=== PATIENT | male | born 1935 | race African-American/Black ===

== ENCOUNTER → 2016-06-20 | Outpatient (CLI) | payer MEDICARE, OTHER ==
[~2016-06-20] MED LIST: ALPR0.25 PO; ASPI-231 PO; ATOR10TA52 PO; CLON0.1T PO; COEN100C2 PO; HYDR25TA4 PO; LOS50T PO; METO-169 PO; MIRT30TA PO; MULT-228 PO; NAPR-223 PO; PRAS5TAB3 PO; RABE20TA5 PO; TADA20TA33 PO
[2016-06-20 12:35] LABS: Urine Bilirubin Negative (Negative); Urine Blood Negative /uL (Negative); Urine Color Yellow (Yellow); Urine Glucose Normal (Normal); Urine Ketone Negative (Negative); Urine Nitrite Negative (Negative); Urine Urobilinogen Normal (Negative)
[2016-06-20 12:41] LABS: Basophils # (auto) 0 uL; Basophils % (auto) 0.5 % (0.0-2.0); Eosinophils # (auto) 0 uL; Eosinophils % (auto) 0.6 % (0.0-7.0); Hematocrit 46.5 % (41.0-53.0); Lymphocytes # (auto) 1.2 uL; Lymphocytes % (auto) 20.6 % (10.0-50.0); Mean Corpuscular Hemoglobin 28.7 pg (28.0-32.0); Mean Corpuscular Hgb Conc. 32.1 g/dL (32.0-36.0); Mean Corpuscular Volume 89.3 fL (80.0-100.0); Mean Platelet Volume 9.9 fL (7.4-10.4); Monocytes # (auto) 0.4 uL; Monocytes % (auto) 7.8 % (0.0-12.0); Neutrophils % (auto) 70.5 % (37.0-80.0); Platelet Count (auto) 203 10^3/uL (140-450); Red Cell Distribution Width 13.9 % (11.6-16.0); SUSPECT VIEW TRANSMISSION; White Blood Cell 5.6 10^3/uL (4.4-10.8)
[2016-06-20 12:55] LABS: Albumin 4.2 g/dL (3.4-5.0); BUN/Creatinine Ratio 9.6; Bilirubin, Direct 0.2 mg/dL (0-0.2); Bilirubin, Total 0.8 mg/dL (0.2-1.0); Calcium 9.6 mg/dL (8.5-10.1); Total Protein 7.8 g/dL (6.4-8.2)
== END | disposition home or self-care (01) ==
LOC: LAB 07:45
PROVIDERS: ATTEND Internal Medicine Cardiovascular Disease
DX: I10 Essential (primary) hypertension (principal); E78.00 Pure hypercholesterolemia, unspecified; K74.1 Hepatic sclerosis; E11.9 Type 2 diabetes mellitus without complications; R97.20 Elevated prostate specific antigen [PSA]; R53.81 Other malaise; E03.9 Hypothyroidism, unspecified; D64.9 Anemia, unspecified; E55.9 Vitamin D deficiency, unspecified; N39.0 Urinary tract infection, site not specified
CPT/HCPCS: 36415; 80048; 80061; 80076; 81003; 82306; 83036; 84153; 84403; 84443; 85025

== ENCOUNTER → 2016-10-14 | Outpatient (CLI) | payer MEDICARE, OTHER ==
[~2016-10-14] VITALS: Ht 172.7 cm; Wt 77.1 kg
[2016-10-14 12:22] LABS: Urine Bilirubin Negative (Negative); Urine Blood Negative /uL (Negative); Urine Color Yellow (Yellow); Urine Glucose Normal (Normal); Urine Ketone Negative (Negative); Urine Nitrite Negative (Negative); Urine Urobilinogen Normal (Negative); Urine pH 7.5 (5.0-8.0)
[2016-10-14 12:23] LABS: Basophils # (auto) 0 uL; Basophils % (auto) 0.3 % (0.0-2.0); CONDITION Y; Eosinophils # (auto) 0 uL; Eosinophils % (auto) 0.8 % (0.0-7.0); Hematocrit 42.3 % (41.0-53.0); Hemoglobin 14.2 g/dL (13.5-17.5); Lymphocytes # (auto) 1.2 uL; Lymphocytes % (auto) 19.7 % (10.0-50.0); Mean Corpuscular Hemoglobin 30.3 pg (28.0-32.0); Mean Corpuscular Hgb Conc. 33.4 g/dL (32.0-36.0); Mean Corpuscular Volume 90.7 fL (80.0-100.0); Mean Platelet Volume 9.7 fL (7.4-10.4); Monocytes # (auto) 0.6 uL; Monocytes % (auto) 9.8 % (0.0-12.0); Neutrophils # (auto) 4.1 uL; Neutrophils % (auto) 69.4 % (37.0-80.0); Platelet Count (auto) 207 10^3/uL (140-450); Red Cell Distribution Width 15.6 % (11.6-16.0); SUSPECT SEE PRINTOUT
[2016-10-14 13:01] LABS: Albumin 3.7 g/dL (3.4-5.0); BUN/Creatinine Ratio 12.7; Bilirubin, Direct 0.1 mg/dL (0-0.2); Bilirubin, Total 0.6 mg/dL (0.2-1.0); Calcium 8.8 mg/dL (8.5-10.1); Potassium 3.8 mmol/L (3.5-5.1)
[2016-10-14 14:41] LABS: Giant Platelets Few; Platelet Clumps FEW; Platelet Estimate Adequate
== END | disposition home or self-care (01) ==
LOC: Rad HDHVI 08:45
PROVIDERS: ATTEND Internal Medicine Cardiovascular Disease
DX: I10 Essential (primary) hypertension (principal); I25.10 Atherosclerotic heart disease of native coronary artery without angina pectoris; E11.9 Type 2 diabetes mellitus without complications; E03.9 Hypothyroidism, unspecified; E78.00 Pure hypercholesterolemia, unspecified; K74.1 Hepatic sclerosis; N39.0 Urinary tract infection, site not specified; D64.9 Anemia, unspecified; E55.9 Vitamin D deficiency, unspecified; R07.89 Other chest pain; R53.81 Other malaise; R97.20 Elevated prostate specific antigen [PSA]; Z95.5 Presence of coronary angioplasty implant and graft
CPT/HCPCS: 36415; 78452; 80048; 80061; 80076; 81003; 82306; 83036; 84153; 84403; 84443; 85025; 93017; 93306; 96374; A9500

== ENCOUNTER → 2017-03-27 | Outpatient (CLI) | payer MEDICARE, OTHER | END | disposition home or self-care (01) | LOC: RADONC 11:31 | PROVIDERS: ATTEND Internal Medicine Cardiovascular Disease | DX: I70.0 Atherosclerosis of aorta (principal); R05 Cough | CPT/HCPCS: 71020 ==

== ENCOUNTER 2017-04-21 20:35 | Emergency (ER) | payer MEDICARE, OTHER ==
[~2017-04-21] VITALS: Ht 172.7 cm; Wt 79.4 kg
[2017-04-21 21:17] VITALS: BP 174/80
[2017-04-21 21:53] LABS: Basophils # (auto) 0 uL; Basophils % (auto) 0.4 % (0.0-2.0); Eosinophils # (auto) 0.1 uL; Eosinophils % (auto) 1.3 % (0.0-7.0); Hematocrit 40.5 % (41.0-53.0); Hemoglobin 13.5 g/dL (13.5-17.5); Lymphocytes # (auto) 1.5 uL; Lymphocytes % (auto) 22.7 % (10.0-50.0); Mean Corpuscular Hemoglobin 29.8 pg (28.0-32.0); Mean Corpuscular Hgb Conc. 33.4 g/dL (32.0-36.0); Mean Corpuscular Volume 89.2 fL (80.0-100.0); Monocytes # (auto) 0.8 uL; Monocytes % (auto) 11.7 % (0.0-12.0); Neutrophils # (auto) 4.2 uL; Neutrophils % (auto) 63.9 % (37.0-80.0); Nucleated Red Blood Cells % 0.1 %; Platelet Count (auto) 170 10^3/uL (140-450); Red Blood Cells 4.55 10^6/uL (4.5-5.90); Red Cell Distribution Width 14.3 % (11.8-14.3); White Blood Cell 6.5 10^3/uL (4.4-10.8)
[2017-04-21 22:06] LABS: Albumin 3.8 g/dL (3.4-5.0); BUN/Creatinine Ratio 9.9; Bilirubin, Total 0.4 mg/dL (0.2-1.0); Calcium 8.7 mg/dL (8.5-10.1); Potassium 3.5 mmol/L (3.5-5.1); Total Protein 7.3 g/dL (6.4-8.2)
[2017-04-21 22:34] LABS: INR 0.92 (0.9-1.15); Partial Thromboplastin Time 28.7 sec (22.64-33.71)
== END 2017-04-21 22:26 | disposition left against medical advice (07) ==
LOC: ER 20:35
DX: R07.9 Chest pain, unspecified (principal); I10 Essential (primary) hypertension; Z53.21 Procedure and treatment not carried out due to patient leaving prior to being seen by health care provider
CPT/HCPCS: 36415; 71045; 80053; 83880; 84443; 84484; 85025; 85610; 85730; 93005

== ENCOUNTER → 2017-04-29 | Outpatient (CLI) | payer MEDICARE, OTHER | END | disposition home or self-care (01) | LOC: Rad HDHVI 14:43 | PROVIDERS: ATTEND Internal Medicine Cardiovascular Disease | DX: I25.10 Atherosclerotic heart disease of native coronary artery without angina pectoris (principal); I34.0 Nonrheumatic mitral (valve) insufficiency; E78.5 Hyperlipidemia, unspecified | CPT/HCPCS: 93306 ==

== ENCOUNTER → 2017-04-30 | Outpatient (CLI) | payer MEDICARE, OTHER ==
[~2017-04-30] VITALS: Ht 172.7 cm; Wt 79.8 kg
== END ==
LOC: Rad HDHVI 08:27
PROVIDERS: ATTEND Internal Medicine Cardiovascular Disease
DX: I10 Essential (primary) hypertension (principal); I25.10 Atherosclerotic heart disease of native coronary artery without angina pectoris; Z95.1 Presence of aortocoronary bypass graft
CPT/HCPCS: 78452; 93017; 96374; A9500

== ENCOUNTER 2017-07-08 10:25 | Emergency (ER) | payer MEDICARE, OTHER ==
[~2017-07-08] VITALS: Ht 172.7 cm; Wt 78.5 kg
[2017-07-08 11:43] VITALS: BP 168/82
== END 2017-07-08 12:48 | disposition home or self-care (01) ==
LOC: ER 10:25
DX: S00.31XA Abrasion of nose, initial encounter (principal); I48.91 Unspecified atrial fibrillation; I25.10 Atherosclerotic heart disease of native coronary artery without angina pectoris; K21.9 Gastro-esophageal reflux disease without esophagitis; E78.5 Hyperlipidemia, unspecified; I10 Essential (primary) hypertension; I25.2 Old myocardial infarction; Z98.61 Coronary angioplasty status; Z79.899 Other long term (current) drug therapy; W18.39XA Other fall on same level, initial encounter; Y93.89 Activity, other specified; Y92.89 Other specified places as the place of occurrence of the external cause; Y99.8 Other external cause status; Z79.82 Long term (current) use of aspirin
CPT/HCPCS: 70450

== ENCOUNTER → 2017-07-29 | Outpatient (CLI) | payer MEDICARE, OTHER | END | disposition home or self-care (01) | LOC: Rad HDHVI 14:41 | PROVIDERS: ATTEND Internal Medicine Cardiovascular Disease | DX: I70.209 Unspecified atherosclerosis of native arteries of extremities, unspecified extremity (principal); R20.0 Anesthesia of skin; I10 Essential (primary) hypertension; E78.5 Hyperlipidemia, unspecified; I48.91 Unspecified atrial fibrillation; Z79.82 Long term (current) use of aspirin | CPT/HCPCS: 93880; 93926 ==

== ENCOUNTER → 2017-09-14 | Outpatient (CLI) | payer MEDICARE, OTHER ==
[~2017-09-14] VITALS: Ht 172.7 cm; Wt 79.4 kg
[2017-09-14 08:10] VITALS: BP 160/90
[2017-09-14 08:35] VITALS: BP 166/92
[2017-09-14 12:05] LABS: Basophils # (auto) 0 uL; Basophils % (auto) 0.5 % (0.0-2.0); Eosinophils # (auto) 0 uL; Eosinophils % (auto) 0.7 % (0.0-7.0); Hemoglobin 14.3 g/dL (13.5-17.5); Lymphocytes # (auto) 1.1 uL; Lymphocytes % (auto) 17.1 % (10.0-50.0); Mean Corpuscular Hemoglobin 29.6 pg (28.0-32.0); Mean Corpuscular Hgb Conc. 33.2 g/dL (32.0-36.0); Mean Corpuscular Volume 89.3 fL (80.0-100.0); Monocytes # (auto) 0.7 uL; Monocytes % (auto) 11.5 % (0.0-12.0); Neutrophils # (auto) 4.5 uL; Neutrophils % (auto) 70.2 % (37.0-80.0); Nucleated Red Blood Cells % 0.6 %; Platelet Count (auto) 210 10^3/uL (140-450); Red Blood Cells 4.82 10^6/uL (4.5-5.90); Red Cell Distribution Width 15.9 % (11.8-14.3); White Blood Cell 6.4 10^3/uL (4.4-10.8)
[2017-09-14 12:11] LABS: BUN/Creatinine Ratio 9.2; Calcium 8.9 mg/dL (8.5-10.1); Potassium 3.9 mmol/L (3.5-5.1)
[2017-09-14 12:15] LABS: INR 0.94 (0.9-1.15); Partial Thromboplastin Time 28.5 sec (23.78-33.04); Prothrombin Time 10.1 sec (9.27-12.13)
== END | disposition home or self-care (01) ==
LOC: Rad HDHVI 07:59
PROVIDERS: ATTEND Internal Medicine Cardiovascular Disease
DX: Z01.818 Encounter for other preprocedural examination (principal); I10 Essential (primary) hypertension; E78.5 Hyperlipidemia, unspecified; Z79.82 Long term (current) use of aspirin
CPT/HCPCS: 36415; 71046; 80048; 85025; 85610; 85730; 93005; G0463

== ENCOUNTER 2017-09-17 07:57 | Inpatient (IN) | payer MEDICARE, OTHER ==
[~2017-09-17] VITALS: Ht 172.7 cm; Wt 92.3 kg
[~2017-09-17 07:57] MED LIST changes: -ALPR0.25 PO; -LOS50T PO; -METO-169 PO; -TADA20TA33 PO
[2017-09-17] MEDS ORDERED: LIDOCAINE 2%HCL (LOCAL ANESTH.) INJ 20ML MDV ONE (08:50)
[2017-09-17] MEDS ORDERED: IOHEXOL 350 MG/ML 100ML IJ ONE ×2 (08:51→09:23)
[2017-09-17] MEDS ORDERED: LIDOCAINE 2% (LOCAL ANESTH.) PF 5ml SDV ONE (09:23)
[2017-09-17] MEDS ORDERED: HEPARIN IN NS 1000Units/500mL 0 ML ONE (09:23)
[2017-09-17] MEDS ORDERED: guaiFENesin-DM 100/10mg/5ml SYR PO ONE (09:45)
[2017-09-17] MEDS ORDERED: MIDAZOLAM HCL 1MG/1ML-2 ML VIAL ONE (09:58)
[2017-09-17] MEDS ORDERED: fentaNYL CITRATE 100 MCG/2 ML VL ONE (09:58)
[2017-09-17] MEDS ORDERED: ANGIOMAX 250 MG VIAL IV ONE (09:59)
[2017-09-17] MEDS ORDERED: SODIUM CHL 0.9% 50 ML ONE (10:07)
[2017-09-17] MEDS ORDERED: cloNIDine HCL 0.1 MG TAB PO SCH (11:45)
[2017-09-17] MEDS ORDERED: NITROGLYCERIN 0.4 MG SL TAB SL PRN (11:45)
[2017-09-17] MEDS ORDERED: ONDANSETRON HCL 4 MG/2 ML VIAL IV PRN (11:45)
[2017-09-17] MEDS ORDERED: MORPHINE SULF(PF) 0.5MG/ML 10ML VIAL IV PRN (11:45)
[2017-09-17] MEDS ORDERED: HYDROcodone-ACET 5/325MG TAB PO PRN (11:45)
[2017-09-17] MEDS ORDERED: ACETAMINOPHEN 500 MG TAB PO PRN (11:45)
[2017-09-17] MEDS ORDERED: NAPROXEN 500 MG TAB PO SCH (11:45)
[2017-09-17] MEDS: SODIUM CHLOR 0.9% PF (SALINE LOCK) 10ML VIAL/SYR IV SCH ×2 (14:00→22:00)
[2017-09-17 14:57] VITALS: BP 166/84
[2017-09-17 17:00] VITALS: BP_SYST 136; BP_SYST 150; BP_SYST 166; BP_DIAS 64; BP_DIAS 79; BP_DIAS 84
[2017-09-17] MEDS ORDERED: MIRTAZAPINE 30 MG TAB PO SCH (18:00)
[2017-09-17 21:00] VITALS: BP 185/110
[2017-09-17 21:15] VITALS: BP 201/108
[2017-09-17 22:00] VITALS: BP_SYST 160; BP_SYST 177; BP_SYST 178; BP_DIAS 104; BP_DIAS 105; BP_DIAS 89
[2017-09-17] MEDS ORDERED: ATORVASTATIN 20 MG TAB PO SCH (22:00)
[2017-09-17] MEDS ORDERED: cloNIDine HCL 0.1 MG TAB PO PRN (22:21)
[2017-09-17 23:21] VITALS: BP 131/71
[2017-09-18] MEDS: cloNIDine HCL 0.1 MG TAB PO PRN ×2 (02:23→06:30)
[2017-09-18 05:00] VITALS: BP 172/87
[2017-09-18] MEDS: SODIUM CHLOR 0.9% PF (SALINE LOCK) 10ML VIAL/SYR IV SCH (06:55)
[2017-09-18] MEDS ORDERED: ASPirin-EC 81 mg tab PO SCH (10:00)
[2017-09-18] MEDS ORDERED: HCTZ 25 MG TAB PO SCH (10:00)
[2017-09-18] MEDS ORDERED: MULTIPLE VITAMIN TAB PO SCH (10:00)
[2017-09-18] MEDS ORDERED: PRASUGREL HCL 10 MG TAB PO SCH (10:00)
[2017-09-18 11:48] VITALS: BP 132/86
== END 2017-09-18 12:00 | disposition home or self-care (01) | DRG 271 ==
LOC: CATH 07:57 → WEST WING 07:58
PROVIDERS: ADMIT Internal Medicine Cardiovascular Disease; ATTEND Internal Medicine Cardiovascular Disease
PROC: B41G1ZZ Fluoroscopy of Left Lower Extremity Arteries using Low Osmolar Contrast (ICD-10-PCS; principal; 2017-09-17)
PROC: 04CK3ZZ Extirpation of Matter from Right Femoral Artery, Percutaneous Approach (ICD-10-PCS; 2017-09-17)
PROC: 047L3Z1 Dilation of Left Femoral Artery using Drug-Coated Balloon, Percutaneous Approach (ICD-10-PCS; 2017-09-17)
PROC: 047N3Z1 Dilation of Left Popliteal Artery using Drug-Coated Balloon, Percutaneous Approach (ICD-10-PCS; 2017-09-17)
PROC: B41F1ZZ Fluoroscopy of Right Lower Extremity Arteries using Low Osmolar Contrast (ICD-10-PCS; 2017-09-17)
DX: I70.213 Atherosclerosis of native arteries of extremities with intermittent claudication, bilateral legs (principal); I74.3 Embolism and thrombosis of arteries of the lower extremities; I25.10 Atherosclerotic heart disease of native coronary artery without angina pectoris
CPT/HCPCS: 36415; 71046; 80048; 85025; 85610; 85730; 93005; 99152; C1769; G0463; J2250

== ENCOUNTER → 2017-11-09 | Outpatient (CLI) | payer MEDICARE, OTHER ==
[~2017-11-09] MED LIST changes: +AZIL40TA2 PO; +CHOL500021 PO
[2017-11-09 09:10] VITALS: BP 140/72
[2017-11-09 09:43] VITALS: BP 140/60
[2017-11-09 12:05] LABS: Basophils # (auto) 0 uL; Basophils % (auto) 0.2 % (0.0-2.0); Eosinophils # (auto) 0.1 uL; Eosinophils % (auto) 0.8 % (0.0-7.0); Hematocrit 41.3 % (41.0-53.0); Hemoglobin 13.5 g/dL (13.5-17.5); Lymphocytes # (auto) 1.3 uL; Lymphocytes % (auto) 18.8 % (10.0-50.0); Mean Corpuscular Hemoglobin 29.7 pg (28.0-32.0); Mean Corpuscular Hgb Conc. 32.6 g/dL (32.0-36.0); Mean Corpuscular Volume 90.9 fL (80.0-100.0); Monocytes # (auto) 0.7 uL; Neutrophils # (auto) 4.8 uL; Neutrophils % (auto) 70.2 % (37.0-80.0); Nucleated Red Blood Cells % 0.1 %; Platelet Count (auto) 205 10^3/uL (140-450); Red Blood Cells 4.54 10^6/uL (4.5-5.90); White Blood Cell 6.9 10^3/uL (4.4-10.8)
[2017-11-09 12:21] LABS: BUN/Creatinine Ratio 12.7; INR 0.94 (0.9-1.15); Partial Thromboplastin Time 28.9 sec (23.78-33.04); Potassium 3.8 mmol/L (3.5-5.1); Prothrombin Time 10.1 sec (9.27-12.13)
[2017-11-09 12:22] LABS: Calcium 8.7 mg/dL (8.5-10.1)
== END | disposition home or self-care (01) ==
LOC: CHF HDHVI 09:03
PROVIDERS: ATTEND Internal Medicine Cardiovascular Disease
DX: Z01.818 Encounter for other preprocedural examination (principal); D64.9 Anemia, unspecified; R79.1 Abnormal coagulation profile; I10 Essential (primary) hypertension; K21.9 Gastro-esophageal reflux disease without esophagitis
CPT/HCPCS: 36415; 80048; 85025; 85610; 85730; 93005; G0463

== ENCOUNTER 2017-11-12 07:02 | Day surgery (SDC) | payer MEDICARE, OTHER ==
[~2017-11-12] VITALS: Ht 68 cm; Wt 78.5 kg
[~2017-11-12 07:02] MED LIST changes: -ATOR10TA52 PO; -CLON0.1T PO; -HYDR25TA4 PO; -MIRT30TA PO; -MULT-228 PO; -NAPR-223 PO; -PRAS5TAB3 PO; -RABE20TA5 PO
[2017-11-12] MEDS ORDERED: ANGIOMAX 250 MG VIAL IV ONE (08:00)
[2017-11-12] MEDS ORDERED: MIDAZOLAM HCL 1MG/1ML-2 ML VIAL ONE (08:01)
[2017-11-12] MEDS ORDERED: IOHEXOL 350 MG/ML 100ML IJ ONE (08:01)
[2017-11-12] MEDS ORDERED: fentaNYL CITRATE 100 MCG/2 ML VL ONE (08:01)
[2017-11-12] MEDS ORDERED: SODIUM CHL 0.9% 50 ML ONE (08:01)
[2017-11-12] MEDS ORDERED: LIDOCAINE 2%HCL (LOCAL ANESTH.) INJ 10ml MDV ONE (08:09)
[2017-11-12] MEDS ORDERED: NITROGLYCERIN 0.4MG/DOSE SPRAY 4.9GM ONE (08:50)
== END 2017-11-12 12:35 | disposition home or self-care (01) ==
LOC: CATH 07:02
PROVIDERS: ATTEND Internal Medicine Cardiovascular Disease
DX: I70.212 Atherosclerosis of native arteries of extremities with intermittent claudication, left leg (principal); I10 Essential (primary) hypertension; E78.5 Hyperlipidemia, unspecified; I20.9 Angina pectoris, unspecified; F41.9 Anxiety disorder, unspecified; F41.0 Panic disorder [episodic paroxysmal anxiety]; F10.99 Alcohol use, unspecified with unspecified alcohol-induced disorder; B15.9 Hepatitis A without hepatic coma; E66.01 Morbid (severe) obesity due to excess calories; Z95.820 Peripheral vascular angioplasty status with implants and grafts; Z87.891 Personal history of nicotine dependence; Z88.8 Allergy status to other drugs, medicaments and biological substances; Z68.45 Body mass index [BMI] 70 or greater, adult; Z82.3 Family history of stroke; Z83.3 Family history of diabetes mellitus; Z82.49 Family history of ischemic heart disease and other diseases of the circulatory system; Z79.899 Other long term (current) drug therapy; Z79.82 Long term (current) use of aspirin; N40.0 Benign prostatic hyperplasia without lower urinary tract symptoms
CPT/HCPCS: 36247; 75716; C1760; C1769; C1887; C1894; J0583; J1644; J2001; J2250; J3010; J7030; Q9967; 99152; 99153; A6257

== ENCOUNTER → 2018-02-15 | Outpatient (CLI) | payer MEDICARE, OTHER ==
[~2018-02-15] VITALS: Ht 172.7 cm; Wt 79.4 kg
== END | disposition home or self-care (01) ==
LOC: Rad HDHVI 09:01
PROVIDERS: ATTEND Internal Medicine Cardiovascular Disease
DX: I20.0 Unstable angina (principal); R00.2 Palpitations
CPT/HCPCS: 78452; 93017; 96374; A9500

== ENCOUNTER → 2018-05-31 | Outpatient (CLI) | payer MEDICARE, OTHER ==
[~2018-05-31] MED LIST changes: +IOHEXOL 350 MG/ML 100ML IJ ONE; +METOPROLOL TARTRATE 1MG/1ML-5ML VIAL IV ONE; +NITROGLYCERIN 0.4 MG SL TAB SL ONE
--- NOTE | 2018-05-31 10:20 | NUR ---
PT. TO CLINIC FOR CTA CORONARIES PER DR. FUNG. PROCEDURE EXPLAINED TO PT, WITH PT. HX REVIEWED WITH PT.
[2018-05-31 10:25] VITALS: BP 188/89
--- NOTE | 2018-05-31 10:25 | NUR ---
IV insertion IV access obtained, via clean sterile technique by inserting 18 gauge catheter at after attempt(s). IV secured properly. No trauma to site. Patient tolerated procedure well. STAT CMP DRAWN AND SENT PER MD ORDER.
--- NOTE | 2018-05-31 11:12 | NUR ---
STILL PENDING STAT LABS. HR 66-68. LOPRESSOR 5 MG SIVP GIVEN PER PROTOCOL.
[2018-05-31 11:21] LABS: Albumin 3.7 g/dL (3.4-5.0); Calcium 8.7 mg/dL (8.5-10.1); Potassium 3.6 mmol/L (3.5-5.1)
[2018-05-31 11:31] LABS: BUN/Creatinine Ratio 11.1; Bilirubin, Total 0.5 mg/dL (0.2-1.0); Total Protein 7.5 g/dL (6.4-8.2)
--- NOTE | 2018-05-31 11:45 | NUR ---
STAT LAB RESULTS BACK, CREAT 1.17. PT. AMBULATED TO CT WITH RN. ADVISOR CONSULTANT SHOWS RSR AT 68 WITH NO ECTOPY.
--- NOTE | 2018-05-31 11:49 | NUR ---
MEDS: PT. REMICATED WITH LOPRESSOR 5 MG SIVP PER PROTOCOL. SR 66 WITH NO ECTOPY.
--- NOTE | 2018-05-31 11:53 | NUR ---
MEDS: PT. MEDICATED WITH 0.4 MG NITRO SL PRIOR TO START OF PROCEDURE. SR 62-63 WITH NO ECTOPY.
--- NOTE | 2018-05-31 12:05 | NUR ---
PROCEDURE COMPLETED . PT. TOLERATED WELL WITH NO C/O. AMBULATED BACK TO CLINIC PENDING DISCHARGE.
--- NOTE | 2018-05-31 12:15 | NUR ---
PT. TAKING PO FLUIDS . GIVEN COPY OF LABS WITH INSTRUCTION TO INCREASE PO FLUIDS OVER NEXT 24 HRS 146/79, 62, 16, 95% RA
[2018-05-31 12:50] VITALS: BP 137/76
--- NOTE | 2018-05-31 12:50 | NUR ---
IV removal IV DC'd with sterile technique, catheter fully intact. Pressure dressing applied to site. Patient tolerated procedure well. Discharged with aftercare instructions per MD. NOTE: PT. HAS FOLLOW UP VISIT WITH DR. FUNG.
== END | disposition home or self-care (01) ==
LOC: Rad HDHVI 10:04
PROVIDERS: ATTEND Internal Medicine Cardiovascular Disease
DX: I25.10 Atherosclerotic heart disease of native coronary artery without angina pectoris (principal); R94.4 Abnormal results of kidney function studies; I10 Essential (primary) hypertension
CPT/HCPCS: 36415; 75571; 80053; 96374; 96376; G0463; Q9967; 96375

== ENCOUNTER → 2018-11-10 | Outpatient (CLI) | payer MEDICARE, OTHER ==
[~2018-11-10] MED LIST changes: -IOHEXOL 350 MG/ML 100ML IJ ONE; -METOPROLOL TARTRATE 1MG/1ML-5ML VIAL IV ONE; -NITROGLYCERIN 0.4 MG SL TAB SL ONE
[2018-11-10 15:21] VITALS: BP_SYST 181; BP_SYST 226; BP_DIAS 105; BP_DIAS 78
== END | disposition home or self-care (01) ==
LOC: CHF HDHVI 08:02
PROVIDERS: ATTEND Internal Medicine Cardiovascular Disease
DX: I25.118 Atherosclerotic heart disease of native coronary artery with other forms of angina pectoris (principal); I11.0 Hypertensive heart disease with heart failure; I50.23 Acute on chronic systolic (congestive) heart failure; I73.9 Peripheral vascular disease, unspecified; I83.90 Asymptomatic varicose veins of unspecified lower extremity; Z95.820 Peripheral vascular angioplasty status with implants and grafts; Z98.61 Coronary angioplasty status
CPT/HCPCS: G0166

== ENCOUNTER → 2018-11-11 | Outpatient (CLI) | payer MEDICARE, OTHER ==
[2018-11-11 11:33] VITALS: BP 186/89
[2018-11-11 11:34] VITALS: BP 170/83
== END | disposition home or self-care (01) ==
LOC: CHF HDHVI 07:57
PROVIDERS: ATTEND Internal Medicine Cardiovascular Disease
DX: I25.118 Atherosclerotic heart disease of native coronary artery with other forms of angina pectoris (principal); I11.0 Hypertensive heart disease with heart failure; I50.23 Acute on chronic systolic (congestive) heart failure; I73.9 Peripheral vascular disease, unspecified; I83.90 Asymptomatic varicose veins of unspecified lower extremity; Z95.820 Peripheral vascular angioplasty status with implants and grafts; Z98.61 Coronary angioplasty status
CPT/HCPCS: G0166

== ENCOUNTER → 2018-11-15 | Outpatient (CLI) | payer MEDICARE, OTHER ==
[2018-11-15 11:15] VITALS: BP 193/89
[2018-11-15 11:16] VITALS: BP 170/69
== END | disposition home or self-care (01) ==
LOC: CHF HDHVI 07:54
PROVIDERS: ATTEND Internal Medicine Cardiovascular Disease
DX: I25.118 Atherosclerotic heart disease of native coronary artery with other forms of angina pectoris (principal); I11.0 Hypertensive heart disease with heart failure; I50.23 Acute on chronic systolic (congestive) heart failure; I73.9 Peripheral vascular disease, unspecified; I83.90 Asymptomatic varicose veins of unspecified lower extremity; Z95.820 Peripheral vascular angioplasty status with implants and grafts; Z98.61 Coronary angioplasty status
CPT/HCPCS: G0166

== ENCOUNTER → 2018-11-16 | Outpatient (CLI) | payer MEDICARE, OTHER ==
[2018-11-16 11:20] VITALS: BP_SYST 184; BP_SYST 215; BP_DIAS 85; BP_DIAS 95
== END | disposition home or self-care (01) ==
LOC: CHF HDHVI 08:00
PROVIDERS: ATTEND Internal Medicine Cardiovascular Disease
DX: I25.118 Atherosclerotic heart disease of native coronary artery with other forms of angina pectoris (principal); I11.0 Hypertensive heart disease with heart failure; I50.23 Acute on chronic systolic (congestive) heart failure; I73.9 Peripheral vascular disease, unspecified; I83.90 Asymptomatic varicose veins of unspecified lower extremity; Z95.820 Peripheral vascular angioplasty status with implants and grafts; Z98.61 Coronary angioplasty status
CPT/HCPCS: G0166

== ENCOUNTER → 2018-11-17 | Outpatient (CLI) | payer MEDICARE, OTHER ==
[2018-11-18 11:19] VITALS: BP_SYST 167; BP_SYST 170; BP_DIAS 78; BP_DIAS 82
== END | disposition home or self-care (01) ==
LOC: CHF HDHVI 07:54
PROVIDERS: ATTEND Internal Medicine Cardiovascular Disease
DX: I25.118 Atherosclerotic heart disease of native coronary artery with other forms of angina pectoris (principal); I11.0 Hypertensive heart disease with heart failure; I50.23 Acute on chronic systolic (congestive) heart failure; I83.90 Asymptomatic varicose veins of unspecified lower extremity; I73.9 Peripheral vascular disease, unspecified; Z98.61 Coronary angioplasty status; Z95.1 Presence of aortocoronary bypass graft
CPT/HCPCS: G0166

== ENCOUNTER → 2018-11-18 | Outpatient (CLI) | payer MEDICARE, OTHER ==
[2018-11-18 11:40] VITALS: BP 200/91
[2018-11-18 11:41] VITALS: BP 168/75
== END | disposition home or self-care (01) ==
LOC: CHF HDHVI 08:01
PROVIDERS: ATTEND Internal Medicine Cardiovascular Disease
DX: I25.118 Atherosclerotic heart disease of native coronary artery with other forms of angina pectoris (principal); I11.0 Hypertensive heart disease with heart failure; I50.23 Acute on chronic systolic (congestive) heart failure; I73.9 Peripheral vascular disease, unspecified; I83.90 Asymptomatic varicose veins of unspecified lower extremity; Z95.820 Peripheral vascular angioplasty status with implants and grafts; Z98.61 Coronary angioplasty status
CPT/HCPCS: G0166

== ENCOUNTER → 2018-11-19 | Outpatient (CLI) | payer MEDICARE, OTHER ==
[2018-11-19 11:12] VITALS: BP 241/101
[2018-11-19 11:13] VITALS: BP 163/83
== END | disposition home or self-care (01) ==
LOC: CHF HDHVI 08:03
PROVIDERS: ATTEND Internal Medicine Cardiovascular Disease
DX: I25.118 Atherosclerotic heart disease of native coronary artery with other forms of angina pectoris (principal); I11.0 Hypertensive heart disease with heart failure; I50.23 Acute on chronic systolic (congestive) heart failure; I73.9 Peripheral vascular disease, unspecified; I83.90 Asymptomatic varicose veins of unspecified lower extremity; Z95.820 Peripheral vascular angioplasty status with implants and grafts; Z98.61 Coronary angioplasty status
CPT/HCPCS: G0166

== ENCOUNTER → 2018-12-22 | Outpatient (CLI) | payer MEDICARE, OTHER | END | disposition home or self-care (01) | LOC: Rad HDHVI 11:27 | PROVIDERS: ATTEND Internal Medicine Cardiovascular Disease | DX: M19.022 Primary osteoarthritis, left elbow (principal); M25.822 Other specified joint disorders, left elbow | CPT/HCPCS: 73080 ==

== ENCOUNTER → 2019-01-10 | Outpatient (CLI) | payer MEDICARE, OTHER | END | disposition home or self-care (01) | LOC: Rad HDHVI 11:22 | PROVIDERS: ATTEND Internal Medicine Cardiovascular Disease | DX: M48.02 Spinal stenosis, cervical region (principal); M47.892 Other spondylosis, cervical region; R20.0 Anesthesia of skin | CPT/HCPCS: 72125 ==

== ENCOUNTER → 2019-01-24 | Outpatient (CLI) | payer MEDICARE, OTHER ==
[~2019-01-24] MED LIST changes: +ALPR0.25 PO; +AMLO5TAB15 PO; +AZIL40TA3 PO; +MIRT30TA PO; +MULT-351 PO; +NAP500T PO; +OMEG120017 PO; +PANT40TA2 PO; +PRAS5TAB3 PO; +RABE20TA5 PO; +ROSU5TAB5 PO; +TADA20TA33 PO
== END | disposition home or self-care (01) ==
LOC: Rad HDHVI 09:49
PROVIDERS: ATTEND Internal Medicine Cardiovascular Disease
DX: I08.8 Other rheumatic multiple valve diseases (principal); I11.0 Hypertensive heart disease with heart failure; I50.43 Acute on chronic combined systolic (congestive) and diastolic (congestive) heart failure; I25.10 Atherosclerotic heart disease of native coronary artery without angina pectoris; I27.20 Pulmonary hypertension, unspecified
CPT/HCPCS: 93306

== ENCOUNTER → 2019-01-27 | Outpatient (CLI) | payer MEDICARE, OTHER ==
[~2019-01-27] VITALS: Ht 172.7 cm; Wt 79.4 kg
== END | disposition home or self-care (01) ==
LOC: Rad HDHVI 12:40
PROVIDERS: ATTEND Internal Medicine Cardiovascular Disease
DX: R07.89 Other chest pain (principal); R42 Dizziness and giddiness; Z82.49 Family history of ischemic heart disease and other diseases of the circulatory system
CPT/HCPCS: 78452; 93017; 96374; A9500

== ENCOUNTER → 2019-02-07 | Outpatient (CLI) | payer MEDICARE, OTHER ==
[2019-02-07 09:45] VITALS: BP 160/90
--- NOTE | 2019-02-07 09:45 | NUR ---
PT. TO CLINIC FOR PRE OP PROCEDURES ON 02/10. PT ALSO HAS APPT. WITH DR. FUNG THIS AFTERNOON. LABS AND EKG DONE WITH PT. GIVEN COPY TO TAKE FOR PRE OP INTERVIEW.
[2019-02-07 10:11] VITALS: BP 140/68
--- NOTE | 2019-02-07 10:11 | NUR ---
Pre-Op Discharge Summary: See e-MAR for any medications given for this visit. Pre-op orders received and carried out per MD of EKG, LABS and chest xrays. Patient given a copy of EKG with instructions to go to [facility] out patient for further follow up care. ORDER FOR CXR FAXED OVER TO [facility] WITH ADDITIONAL INSTRUCTIONS GIVEN TO PT. AND ALL QUESTIONS ANSWERED.
[2019-02-07 11:56] LABS: Basophils # (auto) 0 uL; Basophils % (auto) 0.4 % (0.0-2.0); Eosinophils # (auto) 0.1 uL; Eosinophils % (auto) 1.1 % (0.0-7.0); Hematocrit 43.1 % (41.0-53.0); Hemoglobin 14.3 g/dL (13.5-17.5); Lymphocytes # (auto) 1.4 uL; Lymphocytes % (auto) 19.2 % (10.0-50.0); Mean Corpuscular Hemoglobin 29.6 pg (28.0-32.0); Mean Corpuscular Hgb Conc. 33.2 g/dL (32.0-36.0); Mean Corpuscular Volume 89.1 fL (80.0-100.0); Monocytes # (auto) 0.8 uL; Monocytes % (auto) 10.9 % (0.0-12.0); Neutrophils % (auto) 68.4 % (37.0-80.0); Platelet Count (auto) 218 10^3/uL (140-450); Red Blood Cells 4.84 10^6/uL (4.5-5.90); Red Cell Distribution Width 14.8 % (11.8-14.3); White Blood Cell 7.4 10^3/uL (4.4-10.8)
[2019-02-07 12:11] LABS: INR 0.95 (0.9-1.15)
[2019-02-07 12:12] LABS: Potassium 3.6 mmol/L (3.5-5.1)
[2019-02-07 12:21] LABS: BUN/Creatinine Ratio 11.6; Calcium 8.7 mg/dL (8.5-10.1)
== END | disposition home or self-care (01) ==
LOC: Rad HDHVI 09:39
PROVIDERS: ATTEND Internal Medicine Cardiovascular Disease
DX: I11.0 Hypertensive heart disease with heart failure (principal); I50.9 Heart failure, unspecified; I25.10 Atherosclerotic heart disease of native coronary artery without angina pectoris; E78.5 Hyperlipidemia, unspecified; R94.31 Abnormal electrocardiogram [ECG] [EKG]; Z88.8 Allergy status to other drugs, medicaments and biological substances; Z87.891 Personal history of nicotine dependence; Z98.890 Other specified postprocedural states; Z87.898 Personal history of other specified conditions; Z82.3 Family history of stroke; Z82.49 Family history of ischemic heart disease and other diseases of the circulatory system; Z83.42 Family history of familial hypercholesterolemia; Z82.79 Family history of other congenital malformations, deformations and chromosomal abnormalities; Z83.3 Family history of diabetes mellitus
CPT/HCPCS: 36415; 80048; 85025; 85610; 85730; 93005; G0463

== ENCOUNTER 2019-02-10 07:27 | Inpatient (IN) | payer MEDICARE, OTHER ==
[~2019-02-10] VITALS: Ht 172.7 cm; Wt 79.7 kg
[~2019-02-10 07:27] MED LIST changes: -ASPI-231 PO; -AZIL40TA2 PO; -CHOL500021 PO
[2019-02-10] MEDS ORDERED: LIDOCAINE 2%HCL (LOCAL ANESTH.) INJ 20ML MDV ONE ×2 (08:57→09:21)
[2019-02-10] MEDS ORDERED: IOHEXOL 350 MG/ML 100ML IJ ONE ×3 (08:57→10:00)
[2019-02-10] MEDS ORDERED: ANGIOMAX 250 MG VIAL IV ONE (09:26)
[2019-02-10] MEDS ORDERED: MIDAZOLAM HCL 1MG/1ML-2 ML VIAL ONE (09:26)
[2019-02-10] MEDS ORDERED: SODIUM CHL 0.9% 50 ML ONE (09:26)
[2019-02-10] MEDS ORDERED: fentaNYL CITRATE 100 MCG/2 ML VL ONE (09:26)
[2019-02-10] MEDS ORDERED: VERAPAMIL 2.5MG/ML INJ 2ML VIAL IV ONE (09:29)
[2019-02-10] MEDS ORDERED: TICAGRELOR 90 MG TAB ONE (10:27)
[2019-02-10] MEDS ORDERED: ASPirin 325 MG TAB ONE (10:28)
[2019-02-10] MEDS ORDERED: MORPHINE SULF INJ 2 MG/ML SYRINGE 1ML IV PRN (10:45)
[2019-02-10] MEDS ORDERED: NITROGLYCERIN 0.4 MG SL TAB SL PRN (10:45)
[2019-02-10] MEDS ORDERED: TICAGRELOR 90 MG TAB PO ONE (11:15)
[2019-02-10] MEDS ORDERED: ASPirin-EC 81 mg tab PO ONE (11:15)
[2019-02-10] MEDS ORDERED: amLODIPine BESYLATE 5 MG TAB PO ONE (11:15)
[2019-02-10] MEDS ORDERED: PANTOPRAZOLE 40 MG TAB PO ONE (11:15)
[2019-02-10] MEDS ORDERED: MULTIPLE VITAMINS W/ MINERALS TAB PO ONE (11:15)
--- NOTE | 2019-02-10 14:44 | NUR ---
Patient received from veterinary laboratory technician Report received from veterinary laboratory technician. BETTY SCANLON brought to bed following Cardiac catheterization, on monitoring coordinator and portable oxygen. Patient transferred to unit bed, connected to child monitor # 25 with reading at SR 72. patient is alert and awake with even and unlabored respirations. Patient is on room air with no S/S of distress/SOB or pain noted. Catheterization site to R groin assessed for any bleeding, redness or swelling. None noted. Pedal pulses on affected leg assessed for positive tissue perfusion. Patient instructed on need to notify staff immediately if any pain, burning or wetness to site, and any lower back pain. Bed is in lowest locked position, side rails up x2, and call light within reach. Patient educated on fall prevention measures and verbalized understanding. Patient encouraged to call PRN and as needed. Will continue to monitor q1h and PRN.
[2019-02-10 17:00] VITALS: BP 169/94
--- NOTE | 2019-02-10 17:15 | NUR ---
BLEEDING TO R GROIN NOTED MOD AMOUNT OF BLEEDING TO R GROIN NOTED. MANUAL PRESSURE APPLIED FOR 10 MINS. BLEEDING STOPPED. SITE SOFT TO TOUCH. NO HEMATOMA, REDNESS OR SWELLING NOTED AT THIS TIME. NEW DRESSING APPLIED. VSS. PATIENT EDUCATED TO REMAIN IN BED FOR THE NEXT COUPLE OF HOURS. PATIENT VERBALIZED UNDERSTANDING. WILL CONTINUE TO MONITOR Q1H AND PRN.
[2019-02-10] MEDS ORDERED: MIRTAZAPINE 30 MG TAB PO SCH ×2 (18:00→22:00)
--- NOTE | 2019-02-10 18:30 | NUR ---
R GROIN REASSESSED. R GROIN REASSESSED. NO BLEEDING NOTED AT PRESENT TIME. SITE REMAINS SOFT TO TOUCH. WILL CONTINUE TO MONITOR Q1H AND PRN.
--- NOTE | 2019-02-10 19:17 | NUR ---
Shift Closing note Patient awake and alert laying in bed. Patient is on room air with even and unlabored respirations. No S/S of distress/SOB or pain at this time. Care endorsed to ABBEY MARI RN.
--- NOTE | 2019-02-10 19:20 | NUR ---
Opening Shift Note Assumed care of patient, awake and alert. No S/S of distress/SOB or pain. Right groin soft, non tender, dressing dry and intact. Instructed on POC and to call for assist PRN, will continue to monitor for changes Q1hr and PRN. Side rails up x2. Bed locked in lowest position. Call light within reach.
--- NOTE | 2019-02-10 21:31 | NUR ---
Brilinta Verified with pharmacy if brilinta needs to be held for this patient s/p heart cath. No need to hold brilinta per pharmacy.
[2019-02-10] MEDS: TICAGRELOR 90 MG TAB PO SCH (21:40)
[2019-02-10] MEDS: ALPRAZolam 0.25 MG TAB PO SCH (21:41)
[2019-02-10 22:00] VITALS: BP 141/71
--- NOTE | 2019-02-11 00:19 | NUR ---
R GROIN REASSESSE NO BLEEDING NOTED AT PRESENT TIME. SITE REMAINS SOFT TO TOUCH. WILL CONTINUE TO MONITOR Q1H AND PRN.
[2019-02-11 05:00] VITALS: BP 147/85
--- NOTE | 2019-02-11 07:00 | NUR ---
Endorsed care to day shift RN.
--- NOTE | 2019-02-11 07:30 | NUR ---
Opening Shift Note Assumed care of patient, awake and alert. No S/S of distress/SOB or pain. Instructed on POC and to call for assist PRN, will continue to monitor for changes Q1hr and PRN.
[2019-02-11 09:00] VITALS: BP 167/75
[2019-02-11] MEDS: TICAGRELOR 90 MG TAB PO SCH (09:51)
[2019-02-11] MEDS: ALPRAZolam 0.25 MG TAB PO SCH (09:53)
[2019-02-11] MEDS ORDERED: amLODIPine BESYLATE 5 MG TAB PO SCH (10:00)
[2019-02-11] MEDS ORDERED: ASPirin-EC 81 mg tab PO SCH (10:00)
[2019-02-11] MEDS ORDERED: PANTOPRAZOLE 40 MG TAB PO SCH (10:00)
[2019-02-11] MEDS ORDERED: MULTIPLE VITAMINS W/ MINERALS TAB PO SCH (10:00)
[2019-02-11] MEDS ORDERED: AZILSARTAN MEDOXOMIL CHLORTHAL PO SCH (10:00)
--- NOTE | 2019-02-11 12:57 | NUR ---
Spoke to cortney lucas. informed of patient status. Stated ok to D/c home and to continue taking home dose of Effient.
[2019-02-11 13:19] VITALS: BP 150/81
--- NOTE | 2019-02-11 14:10 | NUR ---
Discharge instructions given as ordered. Encourage to follow up with PMD as instructed. All questions and concerns addressed. Patient verbalized understanding. IV removed with catheter intact, pressure dressing applied. Telemetry unit returned to ICU. Patient ambulated out with spouse, accompanied by staff and family member. No distress noted at time of departure.
== END 2019-02-11 14:06 | disposition home or self-care (01) | DRG 247 ==
LOC: CATH 07:27 → TELE-CENTR 14:58
PROVIDERS: ADMIT Internal Medicine Cardiovascular Disease; ATTEND Internal Medicine Cardiovascular Disease
PROC: 027135Z Dilation of Coronary Artery, Two Arteries with Two Drug-eluting Intraluminal Devices, Percutaneous Approach (ICD-10-PCS; principal; 2019-02-10)
PROC: 4A023N7 Measurement of Cardiac Sampling and Pressure, Left Heart, Percutaneous Approach (ICD-10-PCS; 2019-02-10)
PROC: B2111ZZ Fluoroscopy of Multiple Coronary Arteries using Low Osmolar Contrast (ICD-10-PCS; 2019-02-10)
PROC: B2151ZZ Fluoroscopy of Left Heart using Low Osmolar Contrast (ICD-10-PCS; 2019-02-10)
PROC: 4A033BC Measurement of Arterial Pressure, Coronary, Percutaneous Approach (ICD-10-PCS; 2019-02-10)
DX: I25.10 Atherosclerotic heart disease of native coronary artery without angina pectoris (principal); I10 Essential (primary) hypertension; E78.5 Hyperlipidemia, unspecified
CPT/HCPCS: 92928; 93005; 93458; 93571; 99152; 99153; C1874; G0378; J2250

== ENCOUNTER → 2019-02-16 | Outpatient (CLI) | payer MEDICARE, OTHER | END | disposition home or self-care (01) | LOC: Rad HDHVI 12:03 | PROVIDERS: ATTEND Internal Medicine Cardiovascular Disease | DX: I67.2 Cerebral atherosclerosis (principal); I99.8 Other disorder of circulatory system; G31.9 Degenerative disease of nervous system, unspecified | CPT/HCPCS: 70450 ==

== ENCOUNTER → 2019-07-08 | Outpatient (CLI) | payer MEDICARE, OTHER ==
[~2019-07-08] MED LIST changes: -COEN100C2 PO; +COEN1CAP8 PO; +IOHEXOL 350 MG/ML 100ML IJ ONE
[2019-07-08 09:50] VITALS: BP 185/89
--- NOTE | 2019-07-08 09:50 | NUR ---
Patient in clinic for IV start and lab draw for CTA, pt AAOx4, breathing even and unlabored, ambulatory.
--- NOTE | 2019-07-08 09:51 | NUR ---
IV insertion IV access obtained, via clean sterile technique by inserting 18 gauge catheter at RAC after 1 attempt(s). IV secured properly. No trauma to site. Patient tolerated procedure well.
--- NOTE | 2019-07-08 09:55 | NUR ---
Blood draw sent for STAT creat, waiting on results.
--- NOTE | 2019-07-08 11:00 | NUR ---
rechecked patient bp, 136/74 hr 70.
--- NOTE | 2019-07-08 11:54 | NUR ---
IV removal IV DC'd with sterile technique, catheter fully intact. Pressure dressing applied to site. Patient tolerated procedure well.
[2019-07-08 11:55] VITALS: BP 137/73
--- NOTE | 2019-07-08 11:55 | NUR ---
CHF Clinic Discharge Instructions See e-MAR for any mediations given with this visit. Patient education given on disease process. Patient verbalized understanding. Previous labs reviewed. Patient discharged in stable condition with after care instructions and follow up appointment. Note Patient educated to drink plenty of fluids following IV contrast.
== END | disposition home or self-care (01) ==
LOC: Rad HDHVI 09:31
PROVIDERS: ATTEND Internal Medicine Cardiovascular Disease
DX: I70.203 Unspecified atherosclerosis of native arteries of extremities, bilateral legs (principal); I70.0 Atherosclerosis of aorta; I70.8 Atherosclerosis of other arteries; I77.4 Celiac artery compression syndrome; N40.0 Benign prostatic hyperplasia without lower urinary tract symptoms; R94.4 Abnormal results of kidney function studies; R60.9 Edema, unspecified
CPT/HCPCS: 36415; 75635; 82565; G0463; Q9967

== ENCOUNTER → 2019-09-13 | Outpatient (CLI) | payer MEDICARE, OTHER ==
[~2019-09-13] VITALS: Ht 172.7 cm; Wt 81.6 kg
[~2019-09-13] MED LIST changes: -IOHEXOL 350 MG/ML 100ML IJ ONE
== END | disposition home or self-care (01) ==
LOC: Rad HDHVI 09:01
PROVIDERS: ATTEND Internal Medicine
DX: I25.10 Atherosclerotic heart disease of native coronary artery without angina pectoris (principal); R06.02 Shortness of breath; I10 Essential (primary) hypertension; E78.00 Pure hypercholesterolemia, unspecified; I70.0 Atherosclerosis of aorta; Z82.49 Family history of ischemic heart disease and other diseases of the circulatory system
CPT/HCPCS: 71046; 78452; 93017; 96374; A9500

== ENCOUNTER → 2019-09-14 | Outpatient (CLI) | payer MEDICARE, OTHER ==
[2019-09-14 12:15] LABS: Urine Blood Negative /uL (Negative)
[2019-09-14 12:27] LABS: Basophils # (auto) 0 10 ^3/uL (0-0.2); Basophils % (auto) 0.3 % (0.0-2.0); Eosinophils # (auto) 0.1 10 ^3/uL (0-0.8); Eosinophils % (auto) 0.9 % (0.0-7.0); Hematocrit 42.6 % (41.0-53.0); Lymphocytes # (auto) 1.6 10 ^3/uL (0.4-5.4); Lymphocytes % (auto) 25.2 % (10.0-50.0); Mean Corpuscular Hemoglobin 28.9 pg (28.0-32.0); Mean Corpuscular Hgb Conc. 32.9 g/dL (32.0-36.0); Monocytes # (auto) 0.7 10 ^3/uL (0-1.3); Monocytes % (auto) 10.9 % (0.0-12.0); Neutrophils % (auto) 62.7 % (37.0-80.0); Nucleated Red Blood Cells % 0.1 %; Platelet Count (auto) 177 10^3/uL (140-450); Red Blood Cells 4.84 10^6/uL (4.5-5.90); Red Cell Distribution Width 14.9 % (11.8-14.3); White Blood Cell 6.4 10^3/uL (4.4-10.8)
[2019-09-14 12:33] LABS: Potassium 3.6 mmol/L (3.5-5.1)
[2019-09-14 12:37] LABS: Free T4 (Free Thyroxine) 1.33 ng/dL (0.89-1.76)
[2019-09-14 12:38] LABS: Prostate Specific Antigen 3.03 ng/mL (0.0-4.0)
[2019-09-14 12:53] LABS: Albumin 3.6 g/dL (3.4-5.0); BUN/Creatinine Ratio 11.2; Bilirubin, Total 0.6 mg/dL (0.2-1.0); Total Protein 7.2 g/dL (6.4-8.2)
== END | disposition home or self-care (01) ==
LOC: LAB 07:55
PROVIDERS: ATTEND Internal Medicine
DX: E03.9 Hypothyroidism, unspecified (principal); K90.9 Intestinal malabsorption, unspecified; C61 Malignant neoplasm of prostate; E29.1 Testicular hypofunction; N39.0 Urinary tract infection, site not specified; D51.9 Vitamin B12 deficiency anemia, unspecified; Z79.899 Other long term (current) drug therapy; Z00.00 Encounter for general adult medical examination without abnormal findings
CPT/HCPCS: 36415; 80053; 80061; 81003; 82306; 82607; 83036; 84153; 84403; 84439; 84443; 85025

== ENCOUNTER 2019-12-05 23:18 | Inpatient (IN) | payer MEDICARE, OTHER ==
[~2019-12-05] VITALS: Ht 172.7 cm; Wt 81.6 kg
[2019-12-06] LABS: Basophils # (auto) 0 10 ^3/uL (0-0.2); Basophils % (auto) 0.6 % (0.0-2.0); Eosinophils # (auto) 0.1 10 ^3/uL (0-0.8); Eosinophils % (auto) 1.2 % (0.0-7.0); Hematocrit 40.1 % (41.0-53.0); Hemoglobin 13.1 g/dL (13.5-17.5); Lymphocytes # (auto) 1.7 10 ^3/uL (0.4-5.4); Mean Corpuscular Hemoglobin 28.7 pg (28.0-32.0); Mean Corpuscular Hgb Conc. 32.7 g/dL (32.0-36.0); Mean Corpuscular Volume 87.7 fL (80.0-100.0); Monocytes # (auto) 0.8 10 ^3/uL (0-1.3); Monocytes % (auto) 10.8 % (0.0-12.0); Neutrophils # (auto) 4.5 10 ^3/uL (1.6-8.6); Neutrophils % (auto) 63.4 % (37.0-80.0); Platelet Count (auto) 198 10^3/uL (140-450); Red Blood Cells 4.57 10^6/uL (4.5-5.90)
[2019-12-06 00:22] LABS: Alanine Aminotransferase 27 U/L (16-61); Albumin 3.5 g/dL (3.4-5.0); Amylase 74 U/L (25-115); Anion Gap 3 (5-15); Aspartate Aminotransferase 20 U/L (15-37); BUN/Creatinine Ratio 5.7; Blood Urea Nitrogen 7 mg/dL (7-18); Calcium 8.5 mg/dL (8.5-10.1); Carbon Dioxide 31 mmol/L (21-32); Chloride 101 mmol/L (98-107); GFR African American 73 mL/min; GFR Non-African American 60 mL/min; Glucose 137 mg/dL (74-106); Lipase 79 U/L (73-393); Potassium 3.6 mmol/L (3.5-5.1); Sodium 135 mmol/L (136-145)
[2019-12-06 00:27] LABS: Alkaline Phosphatase 77 U/L (45-117); Bilirubin, Total 0.4 mg/dL (0.2-1.0)
[2019-12-06 02:05] LABS: Partial Thromboplastin Time 29.2 sec (23.0-31.2)
[2019-12-06] MEDS ORDERED: LORazepam 2MG/ML-1ML VIAL IV ONE (02:30)
[2019-12-06 02:46] LABS: Urine Bacteria NONE SEEN /hpf (None Seen); Urine Blood Negative /uL (Negative); Urine Specific Gravity 1.006 (1.001-1.035); Urine WBC <1 /hpf (0 - 3)
[2019-12-06] MEDS ORDERED: cloNIDine HCL 0.1 MG TAB PO ONE (07:15)
[2019-12-06] MEDS ORDERED: MORPHINE SULF INJ 2 MG/ML SYRINGE 1ML IV PRN (09:00)
[2019-12-06] MEDS ORDERED: NITROGLYCERIN 0.4 MG SL TAB SL PRN (09:00)
[2019-12-06] MEDS: MULTIPLE VITAMINS W/ MINERALS TAB PO SCH (09:20)
[2019-12-06] MEDS: FISH OIL PO SCH (09:20)
[2019-12-06] MEDS: PANTOPRAZOLE 40 MG TAB PO SCH (09:20)
[2019-12-06] MEDS: amLODIPine BESYLATE 5 MG TAB PO SCH (09:20)
[2019-12-06] MEDS ORDERED: NAPROXEN 500 MG TAB PO PRN (10:00)
[2019-12-06] MEDS ORDERED: ROSUVASTATIN PO SCH (10:00)
[2019-12-06] MEDS ORDERED: PRASUGREL HCL 10 MG TAB PO SCH (10:00)
[2019-12-06] MEDS ORDERED: RABEPRAZOLE SODIUM PO SCH (10:00)
[2019-12-06] MEDS ORDERED: ALPRAZolam 0.25 MG TAB PO PRN (10:00)
[2019-12-06] MEDS: AZILSARTAN MEDOXOMIL CHLORTHAL PO SCH (10:00)
--- NOTE | 2019-12-06 14:10 | NUR ---
RECEIVED PATIENT TO THE FLOOR ALERT AND ORIENTED X4 BED LOCKED IN LOWEST POSITION WITH TWO SIDE RAILS UP AND CALL LIGHT IN REACH.
--- NOTE | 2019-12-06 15:37 | NUR ---
PAGED DR FUNG REGARDING PATIENTS BP 176/100 WILL AWAIT CALL BACK FOR ORDERS
--- NOTE | 2019-12-06 15:48 | NUR ---
RECEIVED CALL FROM DR FUNG, NEW ORDERS RECEIVED.
[2019-12-06] MEDS: ISOSORBIDE MONONITRATE ER 60 MG TAB PO SCH (16:02)
[2019-12-06] MEDS ORDERED: MIRTAZAPINE 30 MG TAB PO SCH ×2 (18:00→21:00)
--- NOTE | 2019-12-06 18:00 | NUR ---
PATIENT REQUESTING TO HAVE REMERON AT 2100 INSTEAD OF 1800. PATIENT STATES HE TAKES IT TO GO TO BED AT NIGHT. CALLED PHARMACY AND MEDICATION IS RESCHEDULED.
[2019-12-06] MEDS: ATORVASTATIN 20 MG TAB PO SCH ×2 (21:13→21:25)
[2019-12-06 22:00] VITALS: BP 154/105
[2019-12-06] MEDS ORDERED: ISOSORBIDE MONONITRATE ER 60 MG TAB PO ONE (22:15)
[2019-12-07] MEDS: amLODIPine BESYLATE 5 MG TAB PO SCH (03:44)
[2019-12-07 05:15] VITALS: BP 153/97
[2019-12-07 05:43] VITALS: BP 197/116
[2019-12-07 06:28] LABS: Basophils # (auto) 0 10 ^3/uL (0-0.2); Basophils % (auto) 0.3 % (0.0-2.0); Eosinophils # (auto) 0 10 ^3/uL (0-0.8); Eosinophils % (auto) 0.7 % (0.0-7.0); Hematocrit 38.1 % (41.0-53.0); Hemoglobin 12.5 g/dL (13.5-17.5); Lymphocytes # (auto) 1.1 10 ^3/uL (0.4-5.4); Mean Corpuscular Hemoglobin 28.7 pg (28.0-32.0); Mean Corpuscular Hgb Conc. 32.8 g/dL (32.0-36.0); Mean Corpuscular Volume 87.5 fL (80.0-100.0); Monocytes # (auto) 0.6 10 ^3/uL (0-1.3); Monocytes % (auto) 9.4 % (0.0-12.0); Neutrophils % (auto) 73.6 % (37.0-80.0); Nucleated Red Blood Cells % 0.1 %; Platelet Count (auto) 187 10^3/uL (140-450); Red Blood Cells 4.36 10^6/uL (4.5-5.90); Red Cell Distribution Width 15.1 % (11.8-14.3); White Blood Cell 6.8 10^3/uL (4.4-10.8)
[2019-12-07 06:51] LABS: Calcium 8.2 mg/dL (8.5-10.1); Potassium 3.9 mmol/L (3.5-5.1)
[2019-12-07 06:58] LABS: Albumin 3.1 g/dL (3.4-5.0); BUN/Creatinine Ratio 8.8; Bilirubin, Total 0.5 mg/dL (0.2-1.0); Total Protein 6.2 g/dL (6.4-8.2)
--- NOTE | 2019-12-07 07:15 | NUR ---
Opening Shift Note Assumed care of patient, awake and alert. No S/S of distress/SOB or pain. Bed is low, locked with 2x side rails up. Call light is within reach. Instructed on POC and to call for assist PRN, will continue to monitor for changes Q1hr and PRN.
[2019-12-07] MEDS: AZILSARTAN MEDOXOMIL CHLORTHAL PO SCH (08:49)
[2019-12-07] MEDS: FISH OIL PO SCH (08:49)
[2019-12-07 09:00] VITALS: BP 138/84
[2019-12-07] MEDS: MULTIPLE VITAMINS W/ MINERALS TAB PO SCH (09:11)
[2019-12-07] MEDS: ISOSORBIDE MONONITRATE ER 60 MG TAB PO SCH (09:11)
[2019-12-07] MEDS: PANTOPRAZOLE 40 MG TAB PO SCH (09:11)
[2019-12-07 13:00] VITALS: BP 139/91
[2019-12-07 17:28] VITALS: BP 145/80
--- NOTE | 2019-12-07 18:50 | NUR ---
pt discharged home iv out tele box sent back
[2019-12-07] MEDS ORDERED: PRASUGREL HCL 10 MG TAB PO SCH (22:00)
== END 2019-12-07 18:50 | disposition home or self-care (01) | DRG 303 ==
LOC: EDBD 23:18 → ER 23:22 → TELE 23:23 → TELE-WESTW 12-06 14:10
PROVIDERS: ADMIT Internal Medicine Cardiovascular Disease; ATTEND Internal Medicine Cardiovascular Disease
DX: I25.10 Atherosclerotic heart disease of native coronary artery without angina pectoris (principal); I10 Essential (primary) hypertension; I48.91 Unspecified atrial fibrillation; E78.5 Hyperlipidemia, unspecified; K21.9 Gastro-esophageal reflux disease without esophagitis; I25.2 Old myocardial infarction; Z95.5 Presence of coronary angioplasty implant and graft; Z87.891 Personal history of nicotine dependence
CPT/HCPCS: 36415; 71045; 74176; 80053; 81001; 82150; 82550; 82553; 83690; 83880; 84484; 85025; 85379; 85610; 85730; 93005; G0378

== ENCOUNTER → 2020-01-23 | Outpatient (CLI) | payer MEDICARE, OTHER ==
[2020-01-23 10:20] VITALS: BP 155/76
[2020-01-23 11:00] VITALS: BP 146/76
== END | disposition home or self-care (01) ==
LOC: CHF HDHVI 10:16
PROVIDERS: ATTEND Internal Medicine Cardiovascular Disease
DX: I25.10 Atherosclerotic heart disease of native coronary artery without angina pectoris (principal); I10 Essential (primary) hypertension
CPT/HCPCS: G0463

== ENCOUNTER 2020-07-31 21:18 | Inpatient (IN) | payer MEDICARE, OTHER ==
[~2020-07-31] VITALS: Ht 172.7 cm; Wt 85.8 kg
[~2020-07-31 21:18] MED LIST changes: +AMLO-489 PO; -AMLO5TAB15 PO; +MIRT-66 PO; -MIRT30TA PO; +RABE20TA19 PO; -RABE20TA5 PO
[2020-07-31] MEDS ORDERED: MORPHINE SULFATE 4 MG/ML SYR/VIAL IV ONE (21:30)
[2020-07-31] MEDS ORDERED: ONDANSETRON HCL 4 MG/2 ML VIAL IV ONE (21:30)
[2020-07-31 22:38] LABS: Basophils # (auto) 0 10 ^3/uL (0-0.2); Basophils % (auto) 0.3 % (0.0-2.0); Eosinophils # (auto) 0.1 10 ^3/uL (0-0.8); Eosinophils % (auto) 0.9 % (0.0-7.0); Hematocrit 38.7 % (41.0-53.0); Hemoglobin 12.9 g/dL (13.5-17.5); Lymphocytes # (auto) 1.6 10 ^3/uL (0.4-5.4); Lymphocytes % (auto) 22.6 % (10.0-50.0); Mean Corpuscular Hemoglobin 28.9 pg (28.0-32.0); Mean Corpuscular Hgb Conc. 33.4 g/dL (32.0-36.0); Mean Corpuscular Volume 86.4 fL (80.0-100.0); Monocytes # (auto) 0.7 10 ^3/uL (0-1.3); Monocytes % (auto) 10.4 % (0.0-12.0); Neutrophils # (auto) 4.6 10 ^3/uL (1.6-8.6); Neutrophils % (auto) 65.8 % (37.0-80.0); Nucleated Red Blood Cells % 0.1 %; Platelet Count (auto) 153 10^3/uL (140-450); Red Blood Cells 4.49 10^6/uL (4.5-5.90); Red Cell Distribution Width 15.2 % (11.8-14.3); White Blood Cell 6.9 10^3/uL (4.4-10.8)
[2020-07-31 22:58] LABS: Albumin 3.2 g/dL (3.4-5.0); Calcium 8.3 mg/dL (8.5-10.1); Potassium 3.8 mmol/L (3.5-5.1)
[2020-07-31] MEDS ORDERED: LORazepam 0.5 MG TAB PO PRN (23:00)
[2020-07-31] MEDS ORDERED: cloNIDine 0.2 mg/24hr 7DAY PATCH TD PRN (23:00)
[2020-07-31 23:05] LABS: Bilirubin, Total 0.4 mg/dL (0.2-1.0); Total Protein 6.4 g/dL (6.4-8.2)
[2020-08-01 00:04] LABS: Urine Bacteria FEW /hpf (None Seen); Urine Blood Negative /uL (Negative); Urine Mucus FEW (None Seen); Urine Specific Gravity 1.007 (1.001-1.035); Urine WBC 1 /hpf (0 - 3)
[2020-08-01] MEDS ORDERED: MORPHINE SULF INJ 2 MG/ML SYRINGE 1ML IV PRN (00:30)
[2020-08-01] MEDS ORDERED: NITROGLYCERIN 0.4 MG SL TAB SL PRN (00:30)
[2020-08-01 01:08] LABS: Alcohol, Urine < 3.0 mg/dL (0-10); Amphetamine Screen, Urine NEGATIVE (NEGATIVE); Barbiturate Scree,Urine NEGATIVE (NEGATIVE); Benzodiazephine Screen, Urine NEGATIVE (NEGATIVE); Cannabinoid Screen, Urine NEGATIVE (NEGATIVE); Cocaine Screen, Urine NEGATIVE (NEGATIVE); Opiate Scree,Urine NEGATIVE (NEGATIVE); Phencyclidine Screen, Urine NEGATIVE (NEGATIVE)
[2020-08-01] MEDS ORDERED: cloNIDine HCL 0.1 MG TAB PO PRN (01:45)
[2020-08-01] MEDS ORDERED: AZIL40TA2 PO (04:11)
[2020-08-01] MEDS ORDERED: HYDR25TA4 PO (04:11)
[2020-08-01] MEDS ORDERED: ATOR20TA50 PO (04:11)
[2020-08-01] MEDS ORDERED: PRAS5TAB PO (04:11)
[2020-08-01] MEDS ORDERED: LORazepam 0.5 MG TAB PO PRN (04:45)
[2020-08-01 05:00] VITALS: BP 185/97
[2020-08-01] MEDS: LABETALOL HCL 200 MG TAB PO SCH ×3 (05:07→21:01)
[2020-08-01] MEDS: NIFEdipine ER 30 MG TAB PO SCH ×2 (09:57→21:02)
[2020-08-01] MEDS ORDERED: ISOSORBIDE MONONITRATE ER 60 MG TAB PO SCH (10:00)
[2020-08-01] MEDS ORDERED: LOSARTAN POTASSIUM 25 MG TAB PO SCH (10:00)
[2020-08-01 13:00] VITALS: BP 180/75
[2020-08-01] MEDS: ISOSORBIDE MONONITRATE ER 60 MG TAB PO SCH ×2 (14:37→21:00)
[2020-08-01 16:50] VITALS: BP 146/67
[2020-08-01] MEDS: DOXAZOSIN MESYL 2 MG TAB PO SCH (20:59)
[2020-08-01 22:39] VITALS: BP 143/77
[2020-08-02 05:14] VITALS: BP 124/65
[2020-08-02] MEDS: LABETALOL HCL 200 MG TAB PO SCH ×3 (05:23→22:19)
[2020-08-02 08:40] VITALS: BP 136/75
[2020-08-02] MEDS: AZILSARTAN 80 MG PO SCH (10:00)
[2020-08-02] MEDS: ISOSORBIDE MONONITRATE ER 60 MG TAB PO SCH ×2 (10:44→22:18)
[2020-08-02] MEDS: NIFEdipine ER 30 MG TAB PO SCH ×2 (10:45→22:18)
[2020-08-02] MEDS: DOXAZOSIN MESYL 2 MG TAB PO SCH ×2 (10:47→22:16)
[2020-08-02 12:41] VITALS: BP 129/68
[2020-08-02 17:00] VITALS: BP 122/63
[2020-08-02 22:00] VITALS: BP 138/74
[2020-08-03 05:00] VITALS: BP 115/51
[2020-08-03] MEDS: LABETALOL HCL 200 MG TAB PO SCH (05:39)
[2020-08-03 08:55] VITALS: BP 135/67
[2020-08-03] MEDS: AZILSARTAN 80 MG PO SCH (09:06)
[2020-08-03] MEDS: ISOSORBIDE MONONITRATE ER 60 MG TAB PO SCH (09:07)
[2020-08-03] MEDS: DOXAZOSIN MESYL 2 MG TAB PO SCH (09:08)
[2020-08-03] MEDS: NIFEdipine ER 30 MG TAB PO SCH (09:09)
[2020-08-03 10:05] VITALS: BP 107/68
[2020-08-03 12:34] VITALS: BP 107/68
[2020-08-03 12:56] VITALS: BP 135/67
== END 2020-08-03 13:30 | disposition home or self-care (01) | DRG 291 ==
LOC: EDBD 21:18 → ER 21:22 → TELE 08-01 00:19 → TELE-WESTW 08-01 02:55
PROVIDERS: ADMIT Internal Medicine Cardiovascular Disease; ATTEND Internal Medicine Cardiovascular Disease
DX: I11.0 Hypertensive heart disease with heart failure (principal); I50.31 Acute diastolic (congestive) heart failure; I24.9 Acute ischemic heart disease, unspecified; I25.110 Atherosclerotic heart disease of native coronary artery with unstable angina pectoris; I48.91 Unspecified atrial fibrillation; Z20.822 Contact with and (suspected) exposure to COVID-19; Z80.1 Family history of malignant neoplasm of trachea, bronchus and lung; Z88.8 Allergy status to other drugs, medicaments and biological substances; Z80.0 Family history of malignant neoplasm of digestive organs; Z80.3 Family history of malignant neoplasm of breast; Z80.42 Family history of malignant neoplasm of prostate; Z80.8 Family history of malignant neoplasm of other organs or systems; Z81.8 Family history of other mental and behavioral disorders; Z82.0 Family history of epilepsy and other diseases of the nervous system; Z82.3 Family history of stroke; Z82.49 Family history of ischemic heart disease and other diseases of the circulatory system; Z82.5 Family history of asthma and other chronic lower respiratory diseases; Z82.62 Family history of osteoporosis; Z83.3 Family history of diabetes mellitus; Z95.5 Presence of coronary angioplasty implant and graft
CPT/HCPCS: 36415; 71045; 80053; 80307; 81001; 83735; 83880; 84484; 85025; 85379; 87426; 96374; 96375; 99291; G0378; J2405

== ENCOUNTER → 2020-11-26 | Outpatient (CLI) | payer MEDICARE, OTHER ==
[~2020-11-26] MED LIST changes: +ATOR20TA50 PO; +AZIL40TA2 PO; +HYDR25TA4 PO; +PRAS5TAB PO
[2020-11-26 15:46] LABS: Basophils # (auto) 0 10 ^3/uL (0-0.2); Basophils % (auto) 0.9 % (0.0-2.0); Eosinophils # (auto) 0.1 10 ^3/uL (0-0.8); Eosinophils % (auto) 1.3 % (0.0-7.0); Hemoglobin 14.6 g/dL (13.5-17.5); Lymphocytes # (auto) 1.5 10 ^3/uL (0.4-5.4); Lymphocytes % (auto) 25.9 % (10.0-50.0); Mean Corpuscular Hemoglobin 29.4 pg (28.0-32.0); Mean Corpuscular Hgb Conc. 33.1 g/dL (32.0-36.0); Mean Corpuscular Volume 88.6 fL (80.0-100.0); Monocytes # (auto) 0.5 10 ^3/uL (0-1.3); Monocytes % (auto) 9.4 % (0.0-12.0); Neutrophils # (auto) 3.6 10 ^3/uL (1.6-8.6); Neutrophils % (auto) 62.5 % (37.0-80.0); Nucleated Red Blood Cells % 0.1 %; Red Blood Cells 4.96 10^6/uL (4.5-5.90); Red Cell Distribution Width 15.8 % (11.8-14.3); White Blood Cell 5.7 10^3/uL (4.4-10.8)
[2020-11-26 15:47] LABS: Urine Blood Negative /uL (Negative); Urine Specific Gravity 1.018 (1.001-1.035)
[2020-11-26 15:50] LABS: Albumin 3.5 g/dL (3.4-5.0); Potassium 4.5 mmol/L (3.5-5.1)
[2020-11-26 15:57] LABS: BUN/Creatinine Ratio 10.7; Bilirubin, Direct 0.2 mg/dL (0-0.2); Bilirubin, Total 0.4 mg/dL (0.2-1.0); Calcium 9.3 mg/dL (8.5-10.1); Total Protein 7.5 g/dL (6.4-8.2)
== END | disposition home or self-care (01) ==
LOC: LAB 11:26
PROVIDERS: ATTEND Internal Medicine Cardiovascular Disease
DX: C61 Malignant neoplasm of prostate (principal); M51.26 Other intervertebral disc displacement, lumbar region; M43.15 Spondylolisthesis, thoracolumbar region; M25.78 Osteophyte, vertebrae; M48.05 Spinal stenosis, thoracolumbar region; M48.07 Spinal stenosis, lumbosacral region; D51.3 Other dietary vitamin B12 deficiency anemia; I10 Essential (primary) hypertension; E11.9 Type 2 diabetes mellitus without complications; E55.9 Vitamin D deficiency, unspecified; D64.9 Anemia, unspecified; R00.2 Palpitations; R53.1 Weakness; R30.0 Dysuria
CPT/HCPCS: 36415; 72131; 80048; 80061; 80076; 81003; 82306; 83036; 84153; 84403; 84443; 85025

== ENCOUNTER → 2021-12-30 | Outpatient (CLI) | payer MEDICARE, OTHER ==
[~2021-12-30] MED LIST changes: -PRAS5TAB3 PO
== END | disposition home or self-care (01) ==
LOC: Rad HDHVI 12:41
PROVIDERS: ATTEND Internal Medicine Cardiovascular Disease
DX: I08.3 Combined rheumatic disorders of mitral, aortic and tricuspid valves (principal); I10 Essential (primary) hypertension; E78.5 Hyperlipidemia, unspecified
CPT/HCPCS: 93306

== ENCOUNTER → 2022-01-06 | Outpatient (CLI) | payer MEDICARE, OTHER ==
[~2022-01-06] VITALS: Ht 170.2 cm; Wt 79.4 kg
== END | disposition home or self-care (01) ==
LOC: Rad HDHVI 08:22
PROVIDERS: ATTEND Internal Medicine Cardiovascular Disease
DX: I10 Essential (primary) hypertension (principal); I25.10 Atherosclerotic heart disease of native coronary artery without angina pectoris; E78.5 Hyperlipidemia, unspecified; R42 Dizziness and giddiness; Z82.49 Family history of ischemic heart disease and other diseases of the circulatory system
CPT/HCPCS: 78452; 93017; 96374; A9500

== ENCOUNTER → 2023-01-02 | Outpatient (CLI) | payer MEDICARE, OTHER ==
[~2023-01-02] MED LIST changes: -AMLO-489 PO; +AMLO1TAB22 PO; -MIRT-66 PO; +MIRT-94 PO
== END | disposition home or self-care (01) ==
LOC: Rad HDHVI 08:22
PROVIDERS: ATTEND Internal Medicine Cardiovascular Disease
DX: I08.3 Combined rheumatic disorders of mitral, aortic and tricuspid valves (principal); I11.9 Hypertensive heart disease without heart failure; R07.89 Other chest pain
CPT/HCPCS: 93306

== ENCOUNTER → 2023-01-14 | Outpatient (CLI) | payer MEDICARE, OTHER | END | disposition home or self-care (01) | LOC: Rad HDHVI 14:49 | PROVIDERS: ATTEND Internal Medicine Cardiovascular Disease | DX: I65.23 Occlusion and stenosis of bilateral carotid arteries (principal); R07.89 Other chest pain; I10 Essential (primary) hypertension | CPT/HCPCS: 93880 ==

== ENCOUNTER 2023-02-17 13:34 | Inpatient (IN) | payer MEDICARE, OTHER ==
[~2023-02-17] VITALS: Ht 172.7 cm; Wt 84.0 kg
[2023-02-17] MEDS ORDERED: ACETAMINOPHEN 500 MG TAB PO ONE (14:30)
[2023-02-17 14:50] VITALS: PULSE 102; RESP 17; O2SAT 96
[2023-02-17 14:53] LABS: Basophils # (auto) 0 10 ^3/uL (0-0.2); Basophils % (auto) 0.3 % (0.0-2.0); Eosinophils # (auto) 0 10 ^3/uL (0-0.8); Eosinophils % (auto) 0.2 % (0.0-7.0); Hematocrit 44.4 % (41.0-53.0); Hemoglobin 14.5 g/dL (13.5-17.5); Lymphocytes # (auto) 0.4 10 ^3/uL (0.4-5.4); Lymphocytes % (auto) 3.8 % (10.0-50.0); Mean Corpuscular Hemoglobin 29.1 pg (28.0-32.0); Mean Corpuscular Hgb Conc. 32.8 g/dL (32.0-36.0); Mean Corpuscular Volume 88.8 fL (80.0-100.0); Monocytes # (auto) 1.3 10 ^3/uL (0-1.3); Monocytes % (auto) 12.4 % (0.0-12.0); Neutrophils # (auto) 8.8 10 ^3/uL (1.6-8.6); Neutrophils % (auto) 83.3 % (37.0-80.0); Red Cell Distribution Width 14.8 % (11.8-14.3); White Blood Cell 10.5 10^3/uL (4.4-10.8)
[2023-02-17 15:05] LABS: INR 1.04 (0.9-1.15); Partial Thromboplastin Time 30.2 SEC (24.5-34.5); Prothrombin Time 10.9 sec (9.3-11.8)
[2023-02-17 15:13] LABS: Alanine Aminotransferase 31 U/L (7-40); Albumin 4.5 g/dL (3.2-4.8); Alkaline Phosphatase 80 U/L (46-116); Anion Gap 4 (5-15); Aspartate Aminotransferase 25 U/L (13-40); BUN/Creatinine Ratio 10.2 (10.0-20.0); Bilirubin, Total 0.6 mg/dL (0.2-1.0); Blood Urea Nitrogen 14 mg/dL (9-23); Calcium 9.4 mg/dL (8.7-10.4); Carbon Dioxide 30 mmol/L (20-30); Chloride 103 mmol/L (98-107); Glucose 172 mg/dL (74-106); Magnesium 1.9 mg/dL (1.6-2.6); Sodium 137 mmol/L (136-145); Total Protein 7.2 g/dL (5.7-8.2)
[2023-02-17 15:27] LABS: Lactic Acid w/Reflex 2.1 mmol/L (0.4-2.0)
[2023-02-17] MEDS ORDERED: SODIUM CHLORIDE 0.9% 1,000 ML IV ONE (15:30)
[2023-02-17] MEDS ORDERED: cefTRIAXone 1GM/50ML D5W 50 ML IV ONE (15:30)
[2023-02-17] MEDS ORDERED: NITROGLYCERIN 0.4 MG SL TAB SL PRN (16:15)
[2023-02-17] MEDS ORDERED: HYDROcodone-ACET 5/325MG TAB PO PRN (16:15)
[2023-02-17] MEDS ORDERED: MORPHINE SULFATE INJ 2 MG/ml SYRG IV PRN ×2 (16:15)
[2023-02-17] MEDS ORDERED: ACETAMINOPHEN 325 MG TAB PO PRN (16:15)
[2023-02-17] MEDS ORDERED: ONDANSETRON HCL 4 MG/2 ML VIAL IV PRN (16:15)
[2023-02-17 16:33] LABS: LDL Cholesterol 89 mg/dL (< 100); Triglycerides 69 mg/dL (< 150)
[2023-02-17 16:34] LABS: HDL Cholesterol 44 mg/dL (40-59)
[2023-02-17 16:35] LABS: Cholesterol 143 mg/dL (< 200)
[2023-02-17 16:59] LABS: Urine Bacteria NONE SEEN /hpf (None Seen); Urine Blood 1+ /uL (Negative); Urine Clarity Clear (Clear); Urine Color Yellow (Yellow); Urine Protein, UAD 2+ (Negative); Urine Specific Gravity 1.019 (1.001-1.035); Urine Urobilinogen Normal (Negative); Urine WBC 1 /hpf (0 - 3); Urine pH 6.5 (5.0-8.0)
[2023-02-17] MEDS: CARVEDILOL 12.5 MG TAB PO SCH ×2 (17:00→22:34)
[2023-02-17 17:03] LABS: Rapid Influenza A Negative (Negative); Rapid Influenza B Negative (Negative)
[2023-02-17 17:04] LABS: COVID19 ANTIGEN SOFIA FIA NEGATIVE (NEGATIVE)
[2023-02-17 17:16] LABS: Amphetamine Screen, Urine Neg (NEGATIVE); Barbiturate Scree,Urine Neg (NEGATIVE); Benzodiazephine Screen, Urine Neg (NEGATIVE); Cannabinoid Screen, Urine Neg (NEGATIVE); Cocaine Screen, Urine Neg (NEGATIVE); Opiate Scree,Urine Neg (NEGATIVE); Phencyclidine Screen, Urine Neg (NEGATIVE)
[2023-02-17] MEDS: SODIUM CHLORIDE 0.9% 2,400 ML IV ONE ×2 (17:58→18:00)
[2023-02-17] MEDS: TAMSULOSIN HYDROCHLORIDE 0.4 MG CAP PO SCH (18:08)
[2023-02-17 19:30] VITALS: PULSE 76; RESP 18; O2SAT 97
[2023-02-17] MEDS: ASPirin 81 mg TAB PO SCH (22:33)
[2023-02-17 22:55] VITALS: BP 148/82; PULSE 82; RESP 18; TEMP 98.5; O2SAT 92
[2023-02-17] MEDS: ATORVASTATIN 20 MG TAB PO SCH (23:18)
[2023-02-18] VITALS (7 sets, daily range): BP systolic 132–172; BP diastolic 68–87; PULSE 75–82; RESP 16–19; TEMP 99.2–99.9; O2SAT 94–95
[2023-02-18] MEDS: EMPAGLIFLOZIN 10 MG TAB PO SCH (06:24)
[2023-02-18 06:45] LABS: Basophils # (auto) 0 10 ^3/uL (0-0.2); Basophils % (auto) 0.2 % (0.0-2.0); Eosinophils # (auto) 0 10 ^3/uL (0-0.8); Hematocrit 38.9 % (41.0-53.0); Hemoglobin 12.7 g/dL (13.5-17.5); Lymphocytes # (auto) 0.8 10 ^3/uL (0.4-5.4); Lymphocytes % (auto) 8.4 % (10.0-50.0); Mean Corpuscular Hgb Conc. 32.7 g/dL (32.0-36.0); Mean Corpuscular Volume 88.6 fL (80.0-100.0); Monocytes # (auto) 1.2 10 ^3/uL (0-1.3); Monocytes % (auto) 13.5 % (0.0-12.0); Neutrophils # (auto) 7.2 10 ^3/uL (1.6-8.6); Neutrophils % (auto) 77.9 % (37.0-80.0); Nucleated Red Blood Cells % 0.1 %; Red Cell Distribution Width 14.9 % (11.8-14.3); White Blood Cell 9.2 10^3/uL (4.4-10.8)
[2023-02-18 06:46] LABS: Chloride 108 mmol/L (98-107); Potassium 3.6 mmol/L (3.5-5.1); Sodium 140 mmol/L (136-145)
[2023-02-18 06:47] LABS: Anion Gap 5 (5-15); Carbon Dioxide 27 mmol/L (20-30)
[2023-02-18 06:48] LABS: Calcium 7.9 mg/dL (8.5-10.1)
[2023-02-18 06:53] LABS: BUN/Creatinine Ratio 10.2 (10.0-20.0); Blood Urea Nitrogen 11 mg/dL (9-23); Glucose 119 mg/dL (74-106)
[2023-02-18] MEDS ORDERED: FUROSEMIDE 40 MG TAB PO SCH (10:00)
[2023-02-18] MEDS: cefTRIAXone 1GM/50ML D5W 50 ML IV SCH (10:05)
[2023-02-18] MEDS: CARVEDILOL 12.5 MG TAB PO SCH ×2 (10:06→21:34)
[2023-02-18] MEDS: guaiFENesin-CODEINE Liq 5 ML UD PO PRN ×2 (10:06→17:45)
[2023-02-18] MEDS: FUROSEMIDE 40 MG TAB PO SCH (10:07)
[2023-02-18] MEDS ORDERED: LISINOPRIL 5 MG TAB PO SCH (13:00)
[2023-02-18] MEDS: TAMSULOSIN HYDROCHLORIDE 0.4 MG CAP PO SCH (17:45)
[2023-02-18] MEDS: ASPirin 81 mg TAB PO SCH (21:34)
[2023-02-18] MEDS: ATORVASTATIN 20 MG TAB PO SCH (21:34)
[2023-02-18] MEDS: hydrALAZINE HCL 20 MG/ML VL IV PRN (21:57)
[2023-02-19 05:00] VITALS: BP 146/70; PULSE 78; RESP 18; TEMP 98.9; O2SAT 96
[2023-02-19 05:43] LABS: Basophils # (auto) 0 10 ^3/uL (0-0.2); Basophils % (auto) 0.4 % (0.0-2.0); Eosinophils # (auto) 0.1 10 ^3/uL (0-0.8); Eosinophils % (auto) 0.7 % (0.0-7.0); Hematocrit 39.3 % (41.0-53.0); Lymphocytes # (auto) 1.1 10 ^3/uL (0.4-5.4); Lymphocytes % (auto) 13.5 % (10.0-50.0); Mean Corpuscular Hemoglobin 29.1 pg (28.0-32.0); Mean Corpuscular Hgb Conc. 32.9 g/dL (32.0-36.0); Mean Corpuscular Volume 88.2 fL (80.0-100.0); Monocytes # (auto) 1.5 10 ^3/uL (0-1.3); Monocytes % (auto) 17.6 % (0.0-12.0); Neutrophils # (auto) 5.8 10 ^3/uL (1.6-8.6); Neutrophils % (auto) 67.8 % (37.0-80.0); Nucleated Red Blood Cells % 0.1 %; Red Blood Cells 4.46 10^6/uL (4.5-5.90); Red Cell Distribution Width 14.5 % (11.8-14.3); White Blood Cell 8.5 10^3/uL (4.4-10.8)
[2023-02-19 05:44] LABS: Anion Gap 6 (5-15); Carbon Dioxide 27 mmol/L (20-30); Chloride 103 mmol/L (98-107); Potassium 3.3 mmol/L (3.5-5.1); Sodium 136 mmol/L (136-145)
[2023-02-19 05:45] LABS: Calcium 8.1 mg/dL (8.7-10.4)
[2023-02-19] MEDS: EMPAGLIFLOZIN 10 MG TAB PO SCH (05:49)
[2023-02-19 05:50] LABS: BUN/Creatinine Ratio 12.4 (10.0-20.0); Blood Urea Nitrogen 15 mg/dL (9-23); Glucose 113 mg/dL (74-106)
[2023-02-19 07:07] LABS: PSA Free 1.35 ng/mL; Prostate Specific Antigen 4.7 ng/mL (0.0-4.0)
[2023-02-19] MEDS ORDERED: MORPHINE SULFATE INJ 2 MG/ml SYRG IV PRN (07:30)
[2023-02-19] MEDS ORDERED: amLODIPine BESYLATE 5 MG TAB PO ONE (07:30)
[2023-02-19] MEDS ORDERED: POTASSIUM CHL 20 Meq TABLET PO ONE (07:30)
[2023-02-19 08:00] VITALS: BP 157/83; PULSE 69; PULSE 77; RESP 17; TEMP 98.5; O2SAT 96
[2023-02-19 09:00] VITALS: BP 157/83; PULSE 69; RESP 17; TEMP 98.5; O2SAT 96
[2023-02-19] MEDS: cefTRIAXone 1GM/50ML D5W 50 ML IV SCH (10:03)
[2023-02-19] MEDS: CARVEDILOL 12.5 MG TAB PO SCH (10:04)
[2023-02-19] MEDS: FUROSEMIDE 40 MG TAB PO SCH (10:05)
[2023-02-19] MEDS: guaiFENesin-CODEINE Liq 5 ML UD PO PRN (10:15)
[2023-02-19] MEDS: hydrALAZINE HCL 20 MG/ML VL IV PRN (10:18)
[2023-02-19] MEDS ORDERED: AMOX500T86 PO ×2 (12:00)
[2023-02-19 13:00] VITALS: BP 148/78; PULSE 74; RESP 18; TEMP 97.6; O2SAT 97
[2023-02-19 14:50] VITALS: BP 148/78; PULSE 74; RESP 18; TEMP 97.6; O2SAT 97
[2023-02-20] MEDS ORDERED: amLODIPine BESYLATE 5 MG TAB PO SCH (10:00)
== END 2023-02-19 16:10 | disposition home or self-care (01) | DRG 871 ==
LOC: EDBD 13:34 → ER 13:34 → TELE 16:17 → TELE-CENTR 22:55 → CENTRAL 02-18 10:57
PROVIDERS: ADMIT Internal Medicine; ATTEND Internal Medicine
DX: A41.81 Sepsis due to Enterococcus (principal); N17.0 Acute kidney failure with tubular necrosis; I50.22 Chronic systolic (congestive) heart failure; N39.0 Urinary tract infection, site not specified; Z20.822 Contact with and (suspected) exposure to COVID-19; B95.2 Enterococcus as the cause of diseases classified elsewhere; I11.0 Hypertensive heart disease with heart failure; J06.9 Acute upper respiratory infection, unspecified; I48.91 Unspecified atrial fibrillation; I25.10 Atherosclerotic heart disease of native coronary artery without angina pectoris; E78.5 Hyperlipidemia, unspecified; Z95.5 Presence of coronary angioplasty implant and graft; N40.1 Benign prostatic hyperplasia with lower urinary tract symptoms
CPT/HCPCS: 36415; 70450; 71045; 76775; 80048; 80053; 80061; 80307; 80320; 81001; 82607; 83605; 83735; 83880; 84154; 84300; 84443; 84484; 85025; 85610; 85730; 87040; 87086; 87426; 87804; 93005; 96365; 97110; 97116; 97163; 97530; G0378; J0696

== ENCOUNTER 2023-02-19 18:28 | Inpatient (IN) | payer MEDICARE, OTHER ==
[~2023-02-19] VITALS: Ht 170.2 cm; Wt 79.5 kg
[~2023-02-19 18:28] MED LIST changes: +AMOX500T86 PO
[2023-02-19 19:17] LABS: Basophils # (auto) 0 10 ^3/uL (0-0.2); Basophils % (auto) 0.3 % (0.0-2.0); Eosinophils # (auto) 0.1 10 ^3/uL (0-0.8); Hematocrit 41.6 % (41.0-53.0); Hemoglobin 13.5 g/dL (13.5-17.5); Lymphocytes # (auto) 1.2 10 ^3/uL (0.4-5.4); Lymphocytes % (auto) 12.1 % (10.0-50.0); Mean Corpuscular Hemoglobin 28.7 pg (28.0-32.0); Mean Corpuscular Hgb Conc. 32.4 g/dL (32.0-36.0); Mean Corpuscular Volume 88.5 fL (80.0-100.0); Monocytes # (auto) 1.4 10 ^3/uL (0-1.3); Monocytes % (auto) 13.4 % (0.0-12.0); Neutrophils # (auto) 7.4 10 ^3/uL (1.6-8.6); Neutrophils % (auto) 73.2 % (37.0-80.0); Red Cell Distribution Width 14.8 % (11.8-14.3); White Blood Cell 10.1 10^3/uL (4.4-10.8)
[2023-02-19 19:35] LABS: Alanine Aminotransferase 30 U/L (7-40); Albumin 3.9 g/dL (3.2-4.8); Alkaline Phosphatase 54 U/L (46-116); Anion Gap 9 (5-15); Aspartate Aminotransferase 48 U/L (13-40); BUN/Creatinine Ratio 14.7 (10.0-20.0); Bilirubin, Total 0.6 mg/dL (0.2-1.0); Blood Alcohol 3.8 mg/dL (<10); Blood Urea Nitrogen 22 mg/dL (9-23); Calcium 8.6 mg/dL (8.7-10.4); Carbon Dioxide 28 mmol/L (20-30); Chloride 101 mmol/L (98-107); Glucose 134 mg/dL (74-106); Magnesium 1.8 mg/dL (1.6-2.6); Potassium 3.8 mmol/L (3.5-5.1); Sodium 138 mmol/L (136-145); Total Protein 6.4 g/dL (5.7-8.2)
[2023-02-19 19:53] LABS: INR 1.04 (0.9-1.15); Partial Thromboplastin Time 31.2 SEC (24.5-34.5); Prothrombin Time 10.9 sec (9.3-11.8)
[2023-02-19] MEDS ORDERED: IOHEXOL 350 MG/ML 100ML IJ ONE (20:20)
[2023-02-19 20:57] LABS: Urine Bacteria NONE SEEN /hpf (None Seen); Urine Blood Negative /uL (Negative); Urine Clarity Clear (Clear); Urine Color Yellow (Yellow); Urine Mucus FEW (None Seen); Urine Protein, UAD 1+ (Negative); Urine Specific Gravity 1.021 (1.001-1.035); Urine Urobilinogen Normal (Negative); Urine WBC 3 /hpf (0 - 3); Urine pH 5.5 (5.0-8.0)
[2023-02-19 21:05] LABS: Amphetamine Screen, Urine Neg (NEGATIVE); Barbiturate Scree,Urine Neg (NEGATIVE); Benzodiazephine Screen, Urine Pos (NEGATIVE)
[2023-02-19 21:06] LABS: Cannabinoid Screen, Urine Neg (NEGATIVE); Cocaine Screen, Urine Neg (NEGATIVE); Opiate Scree,Urine Pos (NEGATIVE); Phencyclidine Screen, Urine Neg (NEGATIVE)
[2023-02-19 22:05] LABS: COVID19 ANTIGEN SOFIA FIA POSITIVE (NEGATIVE)
[2023-02-19] MEDS ORDERED: ONDANSETRON HCL 4 MG/2 ML VIAL IV PRN (22:45)
[2023-02-19] MEDS ORDERED: HYDROcodone-ACET 5/325MG TAB PO PRN (22:45)
[2023-02-19] MEDS ORDERED: ALBUTEROL SULF HFA 90MCG INH 200DOSE IN PRN (22:45)
[2023-02-19] MEDS ORDERED: ACETAMINOPHEN 500 MG TAB PO PRN (22:45)
[2023-02-19] MEDS ORDERED: DOCUSATE SOD 100 MG CAP PO PRN (22:45)
[2023-02-19] MEDS ORDERED: MORPHINE SULFATE INJ 2 MG/ml SYRG IV PRN (23:30)
[2023-02-19] MEDS ORDERED: NITROGLYCERIN 0.4 MG SL TAB SL PRN (23:30)
[2023-02-20 00:46] VITALS: O2SAT 97
[2023-02-20 02:06] VITALS: PULSE 70; RESP 12; O2SAT 98
[2023-02-20 04:00] VITALS: PULSE 78; RESP 16; O2SAT 97
[2023-02-20 04:10] VITALS: BP 158/68; PULSE 79; RESP 16; TEMP 98.2; O2SAT 97
[2023-02-20 05:51] LABS: Hematocrit 43.3 % (41.0-53.0); Hemoglobin 14.2 g/dL (13.5-17.5); Mean Corpuscular Hemoglobin 29.2 pg (28.0-32.0); Mean Corpuscular Hgb Conc. 32.8 g/dL (32.0-36.0); Red Blood Cells 4.86 10^6/uL (4.5-5.90); Red Cell Distribution Width 14.8 % (11.8-14.3); White Blood Cell 7.6 10^3/uL (4.4-10.8)
[2023-02-20 05:56] LABS: Alanine Aminotransferase 26 U/L (7-40); Albumin 4.1 g/dL (3.2-4.8); Alkaline Phosphatase 50 U/L (46-116); Anion Gap 6 (5-15); Aspartate Aminotransferase 47 U/L (13-40); BUN/Creatinine Ratio 13.6 (10.0-20.0); Bilirubin, Total 0.5 mg/dL (0.2-1.0); Blood Urea Nitrogen 16 mg/dL (9-23); Calcium 8.9 mg/dL (8.5-10.1); Carbon Dioxide 29 mmol/L (20-30); Chloride 103 mmol/L (98-107); Glucose 101 mg/dL (74-106); Potassium 4.1 mmol/L (3.5-5.1); Sodium 138 mmol/L (136-145); Total Protein 6.8 g/dL (5.7-8.2)
[2023-02-20] MEDS ORDERED: SODIUM CHLOR 0.9% PF (SALINE LOCK) 10ML VIAL/SYR IV SCH (06:00)
[2023-02-20 06:03] LABS: Band Neutrophils % (manual) 0; Basophils % (manual) 0 (0.0-2.0); Blast Cells 0; Metamyelocytes % 0; Myelocytes % 0; Promyelocytes % 0; Reactive Lymphocytes 0
[2023-02-20 06:44] LABS: Eosinophils % (manual) 2 (0-7); Lymphocytes % (manual) 20 (10.0-50.0); Monocytes % (manual) 23 (0-12)
[2023-02-20 06:45] LABS: Platelet Estimate Adequate
[2023-02-20 08:00] VITALS: RESP 18; O2SAT 93
[2023-02-20] MEDS ORDERED: DOXYCYCLINE 100MG/250ML 250 ML IV SCH (10:00)
[2023-02-20] MEDS ORDERED: MULTIPLE VITAMIN TAB PO SCH (10:00)
[2023-02-20] MEDS ORDERED: DexAMETHasone SOD PHOS 10MG/1ML VIAL INJ IV SCH (10:00)
[2023-02-20] MEDS ORDERED: ZINC SULFATE 220mg CAP or TAB PO SCH (10:00)
[2023-02-20] MEDS ORDERED: ASCORBIC ACID 1,000 MG TAB PO SCH (10:00)
[2023-02-20] MEDS ORDERED: FAMOTIDINE (10MG/ML) 2ML VL IV SCH (10:00)
[2023-02-20] MEDS ORDERED: BUDESONIDE (INHALATION) 180 MCG IH IN SCH (10:00)
[2023-02-20] MEDS ORDERED: ENOXAPARIN SOD 40 MG/0.4 ML SYRINGE SC SCH (10:00)
[2023-02-20] MEDS ORDERED: CHOLECALCIFEROL (VITD3) 2,000 UNIT CAP/TAB PO SCH (10:00)
== END 2023-02-20 09:31 | disposition left against medical advice (07) | DRG 177 ==
LOC: ER 18:28 → EDBD 18:28 → TELE 23:29 → TELE-WESTW 02-20 03:20
PROVIDERS: ADMIT Nurse Practitioner Family; ATTEND Family Medicine
DX: U07.1 COVID-19 (principal); J12.82 Pneumonia due to coronavirus disease 2019; I67.82 Cerebral ischemia; E78.5 Hyperlipidemia, unspecified; I10 Essential (primary) hypertension; I25.10 Atherosclerotic heart disease of native coronary artery without angina pectoris; I48.91 Unspecified atrial fibrillation; Z53.29 Procedure and treatment not carried out because of patient's decision for other reasons; K21.9 Gastro-esophageal reflux disease without esophagitis; R55 Syncope and collapse; R79.89 Other specified abnormal findings of blood chemistry; I25.2 Old myocardial infarction
CPT/HCPCS: 36415; 70450; 71045; 71275; 80053; 80307; 80320; 81001; 83605; 83735; 83880; 84484; 85007; 85025; 85027; 85379; 85610; 85730; 87040; 87426; 93005; G0378

== ENCOUNTER 2023-02-20 10:02 | Emergency (ER) | payer MEDICARE, OTHER ==
[~2023-02-20] VITALS: Ht 172.7 cm; Wt 82.0 kg
[2023-02-20 10:02] VITALS: BP 117/64; RESP 16; O2SAT 97
[2023-02-20] MEDS ORDERED: SODIUM CHLORIDE 0.9% 1,000 ML IVB ONE (10:15)
[2023-02-20 11:10] LABS: Alanine Aminotransferase 26 U/L (7-40); Albumin 4.2 g/dL (3.2-4.8); Alkaline Phosphatase 53 U/L (46-116); Anion Gap 7 (5-15); Aspartate Aminotransferase 46 U/L (13-40); BUN/Creatinine Ratio 12.4 (10.0-20.0); Blood Urea Nitrogen 20 mg/dL (9-23); Carbon Dioxide 29 mmol/L (20-30); Chloride 102 mmol/L (98-107); Glucose 130 mg/dL (74-106); Potassium 3.5 mmol/L (3.5-5.1); Sodium 138 mmol/L (136-145)
[2023-02-20 11:11] LABS: Basophils # (auto) 0 10 ^3/uL (0-0.2); Basophils % (auto) 0.2 % (0.0-2.0); Bilirubin, Total 0.6 mg/dL (0.2-1.0); Eosinophils # (auto) 0.1 10 ^3/uL (0-0.8); Eosinophils % (auto) 0.9 % (0.0-7.0); Hematocrit 42.3 % (41.0-53.0); Lymphocytes # (auto) 1.4 10 ^3/uL (0.4-5.4); Lymphocytes % (auto) 19.6 % (10.0-50.0); Mean Corpuscular Hemoglobin 29.4 pg (28.0-32.0); Mean Corpuscular Hgb Conc. 33.2 g/dL (32.0-36.0); Mean Corpuscular Volume 88.7 fL (80.0-100.0); Monocytes % (auto) 13.5 % (0.0-12.0); Neutrophils # (auto) 4.8 10 ^3/uL (1.6-8.6); Neutrophils % (auto) 65.8 % (37.0-80.0); Nucleated Red Blood Cells % 0.1 %; Red Blood Cells 4.77 10^6/uL (4.5-5.90); Red Cell Distribution Width 14.5 % (11.8-14.3); White Blood Cell 7.3 10^3/uL (4.4-10.8)
[2023-02-20 11:16] VITALS: PULSE 77
== END 2023-02-20 16:09 | disposition left against medical advice (07) ==
LOC: ER 10:02
DX: R41.82 Altered mental status, unspecified (principal); K21.9 Gastro-esophageal reflux disease without esophagitis; I10 Essential (primary) hypertension; I25.2 Old myocardial infarction; I25.810 Atherosclerosis of coronary artery bypass graft(s) without angina pectoris; Z90.89 Acquired absence of other organs; Z53.29 Procedure and treatment not carried out because of patient's decision for other reasons
CPT/HCPCS: 36415; 70450; 71046; 80053; 83605; 83735; 85025; 85379; 87040

== ENCOUNTER → 2023-06-04 | Outpatient (CLI) | payer MEDICARE, OTHER ==
[2023-06-04 07:57] LABS: Basophils # (auto) 0 10 ^3/uL (0-0.2); Basophils % (auto) 0.4 % (0.0-2.0); Eosinophils # (auto) 0.1 10 ^3/uL (0-0.8); Hematocrit 43.3 % (41.0-53.0); Hemoglobin 14.1 g/dL (13.5-17.5); Lymphocytes # (auto) 1.9 10 ^3/uL (0.4-5.4); Mean Corpuscular Hemoglobin 28.7 pg (28.0-32.0); Mean Corpuscular Hgb Conc. 32.5 g/dL (32.0-36.0); Mean Corpuscular Volume 88.3 fL (80.0-100.0); Monocytes # (auto) 0.9 10 ^3/uL (0-1.3); Monocytes % (auto) 12.7 % (0.0-12.0); Neutrophils # (auto) 4.2 10 ^3/uL (1.6-8.6); Neutrophils % (auto) 58.9 % (37.0-80.0); Nucleated Red Blood Cells % 0.1 %; Red Cell Distribution Width 14.4 % (11.8-14.3); White Blood Cell 7.1 10^3/uL (4.4-10.8)
[2023-06-04 08:03] LABS: Urine Bacteria NONE SEEN /hpf (None Seen); Urine Blood Negative /uL (Negative); Urine Clarity Clear (Clear); Urine Protein, UAD TRACE (Negative); Urine Specific Gravity 1.008 (1.001-1.035); Urine Urobilinogen Normal (Negative); Urine WBC <1 /hpf (0 - 3); Urine pH 6.5 (5.0-8.0)
[2023-06-04 08:06] LABS: Urine Color Straw (Yellow)
[2023-06-04 09:00] LABS: Alanine Aminotransferase 18 U/L (7-40); Albumin 4.2 g/dL (3.2-4.8); Alkaline Phosphatase 66 U/L (46-116); Anion Gap 6 (5-15); Aspartate Aminotransferase 22 U/L (13-40); Bilirubin, Direct 0.3 mg/dL (<0.3); Blood Urea Nitrogen 15 mg/dL (9-23); Calcium 9.3 mg/dL (8.5-10.1); Carbon Dioxide 29 mmol/L (20-30); Chloride 104 mmol/L (98-107); Cholesterol 112 mg/dL (< 200); Glucose 102 mg/dL (74-106); HDL Cholesterol 37 mg/dL (40-59); LDL Cholesterol 68 mg/dL (< 100); Potassium 3.8 mmol/L (3.5-5.1); Sodium 139 mmol/L (136-145); Total Protein 7.1 g/dL (5.7-8.2); Triglycerides 53 mg/dL (< 150)
[2023-06-04 09:25] LABS: Bilirubin, Total 0.7 mg/dL (0.2-1.0)
== END | disposition home or self-care (01) ==
LOC: LAB 07:40
PROVIDERS: ATTEND Internal Medicine Cardiovascular Disease
DX: C61 Malignant neoplasm of prostate (principal); D51.3 Other dietary vitamin B12 deficiency anemia; I10 Essential (primary) hypertension; D64.9 Anemia, unspecified; E11.9 Type 2 diabetes mellitus without complications; E78.5 Hyperlipidemia, unspecified; E55.9 Vitamin D deficiency, unspecified; R00.2 Palpitations; R53.1 Weakness
CPT/HCPCS: 36415; 80048; 80061; 80076; 81001; 83036; 84153; 84403; 84443; 85025

== ENCOUNTER → 2023-07-28 | Outpatient (CLI) | payer MEDICARE, OTHER | END | disposition home or self-care (01) | LOC: Rad HDHVI 13:28 | PROVIDERS: ATTEND Internal Medicine Cardiovascular Disease | DX: I08.3 Combined rheumatic disorders of mitral, aortic and tricuspid valves (principal); I11.9 Hypertensive heart disease without heart failure; E78.5 Hyperlipidemia, unspecified | CPT/HCPCS: 93306 ==

== ENCOUNTER → 2023-09-14 | Outpatient (CLI) | payer MEDICARE, OTHER ==
[~2023-09-14] MED LIST changes: +AMIO200T33 PO; +CHLO25TA2 PO; +CLON0.1T PO; +DOXA4TAB83 PO; +POM PO; +TRIA0.25 PO
[2023-09-14 10:07] VITALS: BP 167/78; PULSE 83; RESP 16; O2SAT 98
[2023-09-14 10:20] VITALS: BP 171/74; PULSE 74; RESP 16; O2SAT 99
== END | disposition home or self-care (01) ==
LOC: Rad HDHVI 09:52
PROVIDERS: ATTEND Internal Medicine Cardiovascular Disease
DX: Z01.818 Encounter for other preprocedural examination (principal); R00.1 Bradycardia, unspecified; I49.1 Atrial premature depolarization; R94.31 Abnormal electrocardiogram [ECG] [EKG]
CPT/HCPCS: 71046; 93005; G0463

== ENCOUNTER 2023-09-17 07:00 | Day surgery (SDC) | payer MEDICARE, OTHER ==
[2023-09-14 11:50] LABS: Basophils # (auto) 0 10 ^3/uL (0-0.2); Basophils % (auto) 0.4 % (0.0-2.0); Eosinophils # (auto) 0 10 ^3/uL (0-0.8); Eosinophils % (auto) 0.4 % (0.0-7.0); Hematocrit 40.2 % (41.0-53.0); Hemoglobin 13.3 g/dL (13.5-17.5); Lymphocytes # (auto) 1.1 10 ^3/uL (0.4-5.4); Lymphocytes % (auto) 14.2 % (10.0-50.0); Mean Corpuscular Hemoglobin 28.8 pg (28.0-32.0); Mean Corpuscular Hgb Conc. 33.1 g/dL (32.0-36.0); Mean Corpuscular Volume 86.9 fL (80.0-100.0); Monocytes # (auto) 0.9 10 ^3/uL (0-1.3); Monocytes % (auto) 11.4 % (0.0-12.0); Neutrophils # (auto) 5.8 10 ^3/uL (1.6-8.6); Neutrophils % (auto) 73.6 % (37.0-80.0); Red Blood Cells 4.63 10^6/uL (4.5-5.90); Red Cell Distribution Width 16.2 % (11.8-14.3); White Blood Cell 7.8 10^3/uL (4.4-10.8)
[2023-09-14 11:53] LABS: Anion Gap 3 (5-15); Calcium 9.8 mg/dL (8.5-10.1); Carbon Dioxide 31 mmol/L (20-30); Chloride 106 mmol/L (98-107); Potassium 3.7 mmol/L (3.5-5.1); Sodium 140 mmol/L (136-145)
[2023-09-14 11:59] LABS: BUN/Creatinine Ratio 11.9 (10.0-20.0); Blood Urea Nitrogen 16 mg/dL (9-23); Glucose 79 mg/dL (74-106)
[2023-09-14 12:13] LABS: INR 1.03 (0.9-1.15); Partial Thromboplastin Time 28.4 SEC (24.5-34.5); Prothrombin Time 10.9 sec (9.3-11.8)
[~2023-09-17] VITALS: Ht 172.7 cm; Wt 79.4 kg
[~2023-09-17 07:00] MED LIST changes: -AMOX500T86 PO; -AZIL40TA2 PO; -AZIL40TA3 PO; -HYDR25TA4 PO; -MIRT-94 PO; -NAP500T PO; -PRAS5TAB PO; -RABE20TA19 PO; -ROSU5TAB5 PO
[2023-09-17] MEDS ORDERED: MIDAZOLAM HCL 2MG/2ML 2ml VIAL (1mg/ml) ONE (09:41)
[2023-09-17] MEDS ORDERED: fentaNYL CITRATE 100 MCG/2 ML VL ONE (09:41)
[2023-09-17] MEDS ORDERED: VANCOMYCIN HCL 1000 MG VL ONE (09:41)
[2023-09-17] MEDS ORDERED: VANCOMYCIN 1GM/200ML 200 ML IV ONE (09:41)
[2023-09-17] MEDS ORDERED: LIDOCAINE 2%HCL (LOCAL ANESTH.) INJ 20ML MDV ONE (09:41)
[2023-09-17] MEDS ORDERED: HYDROmorphone HCL 2 MG/ML VL/or syr ONE (10:18)
[2023-09-17] MEDS ORDERED: FUROSEMIDE 20 MG/2 ML VIAL ONE (10:49)
== END 2023-09-17 14:20 | disposition home or self-care (01) ==
LOC: CATH 07:00
PROVIDERS: ATTEND Internal Medicine Cardiovascular Disease
DX: I11.0 Hypertensive heart disease with heart failure (principal); I50.21 Acute systolic (congestive) heart failure; I25.5 Ischemic cardiomyopathy; I25.10 Atherosclerotic heart disease of native coronary artery without angina pectoris; E78.5 Hyperlipidemia, unspecified; M19.90 Unspecified osteoarthritis, unspecified site; F32.A Depression, unspecified; F41.9 Anxiety disorder, unspecified; Z91.09 Other allergy status, other than to drugs and biological substances; Z95.5 Presence of coronary angioplasty implant and graft; Z87.891 Personal history of nicotine dependence; Z79.899 Other long term (current) drug therapy; Z98.890 Other specified postprocedural states
CPT/HCPCS: 33225; 33249; 36415; 71045; 80048; 85025; 85610; 85730; 93005; C1769; C1882; C1894; C1895; C1898; J1170; J1940; J2250; J3010; J3370; J7030; 99152; 99153

== ENCOUNTER → 2023-09-18 | Outpatient (CLI) | payer MEDICARE, OTHER | END | disposition home or self-care (01) | LOC: Rad HDHVI 11:19 | PROVIDERS: ATTEND Internal Medicine Cardiovascular Disease | DX: Z09 Encounter for follow-up examination after completed treatment for conditions other than malignant neoplasm (principal); Z95.0 Presence of cardiac pacemaker | CPT/HCPCS: 71046 ==

== ENCOUNTER → 2023-11-10 | Outpatient (CLI) | payer MEDICARE, OTHER ==
[~2023-11-10] MED LIST changes: +CLON0.2T PO; +IOHEXOL 350 MG/ML 100ML IJ ONE
[2023-11-10 09:58] VITALS: BP 166/72; PULSE 79; RESP 18; O2SAT 98
[2023-11-10 10:19] VITALS: BP 141/62; PULSE 74; RESP 18; O2SAT 98
== END | disposition home or self-care (01) ==
LOC: Rad HDHVI 09:44
PROVIDERS: ATTEND Internal Medicine Cardiovascular Disease
DX: R51.9 Headache, unspecified (principal); R07.9 Chest pain, unspecified
CPT/HCPCS: 70470; G0463; Q9967

== ENCOUNTER → 2024-04-20 | Outpatient (CLI) | payer MEDICARE, OTHER ==
[~2024-04-20] VITALS: Ht 170.2 cm; Wt 81.6 kg
[~2024-04-20] MED LIST changes: -IOHEXOL 350 MG/ML 100ML IJ ONE
== END | disposition home or self-care (01) ==
LOC: Rad HDHVI 09:58
PROVIDERS: ATTEND Internal Medicine Cardiovascular Disease
DX: I11.0 Hypertensive heart disease with heart failure (principal); I50.42 Chronic combined systolic (congestive) and diastolic (congestive) heart failure; I42.0 Dilated cardiomyopathy; I25.5 Ischemic cardiomyopathy; I25.10 Atherosclerotic heart disease of native coronary artery without angina pectoris; E78.5 Hyperlipidemia, unspecified; Z82.49 Family history of ischemic heart disease and other diseases of the circulatory system
CPT/HCPCS: 78452; 93017; 96374; A9500

== ENCOUNTER 2024-08-26 15:24 | Outpatient (CLI) | payer MEDICARE, OTHER | END 2024-08-26 17:00 | disposition home or self-care (01) | LOC: LAB 15:24 | PROVIDERS: ATTEND Internal Medicine Cardiovascular Disease | DX: N17.9 Acute kidney failure, unspecified (principal) | CPT/HCPCS: 36415; 82565; 84520 ==

== ENCOUNTER 2024-09-20 08:48 | Outpatient (CLI) | payer MEDICARE, OTHER ==
[2024-09-20 09:00] VITALS: BP 163/78; PULSE 81; RESP 16; O2SAT 96
[2024-09-20 09:22] VITALS: BP 162/78; PULSE 76; RESP 16; O2SAT 98
--- NOTE | 2024-09-20 13:50 | DVH ---
XY CHEST TWO VIEWS ROUTINE CLINICAL HISTORY: PRE OP CARDIAC CLEARANCE COMPARISON: XY CHEST TWO VIEWS ROUTINE on DOS: 09/18/23, XY CHEST TWO VIEWS ROUTINE on DOS: 09/14/23, X Y CHEST TWO VIEWS ROUTINE on DOS: 02/20/23 TECHNIQUE: Frontal and lateral view of the chest was obtained FINDINGS: Lines and Tubes: Left pacemaker/AICD. Lungs: No focal consolidation. Pleura: No effusion. No pneumothorax. Cardiomediastinal contours: Unremarkable Bones: No acute osseous abnormality. IMPRESSION: No acute cardiopulmonary disease.
[2024-09-20] MEDS ORDERED: AMLO1TAB23 PO (16:58)
[2024-09-20] MEDS ORDERED: TRAM50TA2 PO (17:20)
[2024-09-20] MEDS ORDERED: POTA-36 PO (17:20)
[2024-09-20] MEDS ORDERED: FLUT1SPR5 (17:20)
== END 2024-09-20 17:00 | disposition home or self-care (01) ==
LOC: Rad HDHVI 08:48
PROVIDERS: ATTEND Internal Medicine Cardiovascular Disease
DX: Z01.818 Encounter for other preprocedural examination (principal); I49.1 Atrial premature depolarization; I49.3 Ventricular premature depolarization; R94.31 Abnormal electrocardiogram [ECG] [EKG]; I42.0 Dilated cardiomyopathy; R07.9 Chest pain, unspecified
CPT/HCPCS: 71046; 93005; G0463

== ENCOUNTER 2024-09-22 07:00 | Day surgery (SDC) | payer MEDICARE, OTHER ==
[2024-09-20 10:17] LABS: Basophils # (auto) 0 10 ^3/uL (0-0.2); Basophils % (auto) 0.3 % (0.0-2.0); Eosinophils # (auto) 0 10 ^3/uL (0-0.8); Eosinophils % (auto) 0.6 % (0.0-7.0); Hematocrit 39.9 % (41.0-53.0); Hemoglobin 13.6 g/dL (13.5-17.5); Lymphocytes # (auto) 1.1 10 ^3/uL (0.4-5.4); Lymphocytes % (auto) 16.2 % (10.0-50.0); Mean Corpuscular Hemoglobin 29.9 pg (28.0-32.0); Mean Corpuscular Hgb Conc. 34.1 g/dL (32.0-36.0); Mean Corpuscular Volume 87.7 fL (80.0-100.0); Monocytes # (auto) 0.7 10 ^3/uL (0-1.3); Monocytes % (auto) 10.1 % (0.0-12.0); Neutrophils # (auto) 5.1 10 ^3/uL (1.6-8.6); Neutrophils % (auto) 72.8 % (37.0-80.0); Nucleated Red Blood Cells % 0.1 %; Platelet Count (auto) 150 10^3/uL (140-450); Red Blood Cells 4.55 10^6/uL (4.5-5.90); Red Cell Distribution Width 14.2 % (11.8-14.3)
[2024-09-20 10:21] LABS: Chloride 105 mmol/L (98-107); INR 1.03 (0.9-1.15); Partial Thromboplastin Time 28.9 SEC (24.5-34.5); Potassium 3.7 mmol/L (3.5-5.1); Prothrombin Time 10.9 sec (9.3-11.8); Sodium 143 mmol/L (136-145)
[2024-09-20 10:22] LABS: Anion Gap 10 (5-15); Carbon Dioxide 28 mmol/L (20-31)
[2024-09-20 10:23] LABS: Calcium 9.9 mg/dL (8.7-10.4)
[2024-09-20 10:27] LABS: Blood Urea Nitrogen 21 mg/dL (9-23); Glucose 100 mg/dL (74-106)
[~2024-09-22] VITALS: Ht 172.7 cm; Wt 81.6 kg
[2024-09-22] VITALS (8 sets, daily range): BP systolic 125–149; BP diastolic 70–79; PULSE 70–78; RESP 12–16; TEMP 98; O2SAT 96–99
[~2024-09-22 07:00] MED LIST changes: -AMLO1TAB22 PO; +AMLO1TAB23 PO; -CLON0.2T PO; +FLUT1SPR5; -MULT-351 PO; -OMEG120017 PO; -PANT40TA2 PO; -POM PO; +POTA-36 PO; +TRAM50TA2 PO
[2024-09-22] MEDS: IODIXANOL 320MG/ML 100ML BTL IV ONE (09:15)
[2024-09-22] MEDS: ANGIOMAX 250 MG VIAL IV ONE (09:21)
[2024-09-22] MEDS: fentaNYL CITRATE 100 MCG/2 ML VL ONE (09:21)
[2024-09-22] MEDS: SODIUM CHL 0.9% 50 ML ONE (09:22)
[2024-09-22] MEDS: MIDAZOLAM HCL 2MG/2ML 2ml VIAL (1mg/ml) ONE (09:22)
[2024-09-22] MEDS: LIDOCAINE 2%HCL (LOCAL ANESTH.) INJ 20ML MDV ONE (09:22)
[2024-09-22] MEDS: ATROPINE SULF 1 MG/10ml SYR ONE (10:36)
[2024-09-22] MEDS: CLOPIDOGREL BISULFATE 75 MG TAB ONE (11:20)
--- NOTE | 2024-09-22 12:31 | DVHOP ---
DATE OF SURGERY: 09/22/2024 PROCEDURES PERFORMED: * Selective left and right coronary angiography and ventriculogram. * Right iliac angiography. * Conscious sedation. * Angioplasty with stent placement of the ostium of the RCA with a 2.75 x 12 mm stent followed by a 4.0 x 15 mm Xu Spalding stent. FFR of RCA and a shockwave thrombectomy device was deployed as well, two of them, a 3.0 and a 4.0 device in the ostium of the RCA as well, ostial/proximal RCA section. DESCRIPTION OF PROCEDURE: The patient was prepped and draped in a sterile condition and 1% Xylocaine was used to anesthetize the right groin. Using a Cook needle, the right femoral artery was engaged via Seldinger technique. A 6-Uruguayan sheath in the right femoral artery. Using a 6-[place] JL4 catheter and a 6-[place] JR4 catheter, selective left and right coronary angiography was performed. Using a 6-[place] pigtail catheter, a ventriculogram was done. Then, the 6-[place] diagnostic system was exchanged for a 6-[place] interventional system. Using a 6-[place] JR4 guide catheter, the RCA was cannulated. Then, a ChoICE PT wire was then used to cross the lesion. The patient underwent FFR. It showed an FFR of 0.58 of the RCA. The artery was then dilated with two shockwave balloons, 3.0 x 13, and a 4.0 x 13. Shockwave thrombectomy device was used. Following that, a 2.75 x 12 and a 4.0 x 15 mm Xu Resolute stent was then deployed sequentially from distal segment of the proximal RCA to the ostium of the RCA. The 2.75 was angioplastied at 20 mm for final dimension of 3.75 and the 4.0 was dilated at 14 atmospheres. There were no complications. The patient tolerated the procedure well. RESULTS: * Left main patent. * Left anterior descending artery with mild intimal irregularity without any flow-restrictive lesion. * Circumflex without any flow-restrictive lesion. 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 The 2.75 with final dimension of 3.75 and the 4.0 with final dimension of 4.12 into the proximal segment of the RCA respectively. There were no complications. Ejection-fraction pre-angioplasty was around 45-50% with an LVEDP of 18-22 mmHg. Vernon Gordon MD SA/ANA M TID: [id number] RECEIPT: [id number]
--- NOTE | 2024-09-22 12:36 | DVHHP ---
ADMIT DATE: 09/22/2024 HISTORY OF PRESENT ILLNESS: The patient with a history of coronary artery disease, history of ischemic cardiomyopathy, depressed left ventricular ejection fraction status post AICD implantation, now presents with signs and symptoms complex of chest pain and shortness of breath. The patient has early satiety as well. He walks across the room. He becomes very fatigued. He had multiple angioplasties of the right coronary artery of the ostium. He actually has two additional stents in the ostium of the RCA. appears also recurrence. Risks and benefits were explained to the patient. The patient understands and agrees. SOCIAL HISTORY: No history of tobacco use. No history of drug or alcohol use. REVIEW OF SYSTEMS: He denies any fever, chills, melena, hematochezia, hematemesis, hemoptysis. Denies dysuria. No polyuria or polydipsia. Denies any history of diabetes. No history of endocrine disorder. No history of CVA, but the patient has early manifestation of organic brain syndrome. His memory is diminishing and they have to repeat many things he asks over and over again. Denies any GI symptomatology. No inflammatory bowel disease. No irritable bowel syndrome. No lung disease. 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 HEENT: Pupils are reactive. Funduscopic exam is benign. Sclerae anicteric. Extraocular muscles are intact. No AV nicking noted. No papilledema noted. Tympanic membranes are negative. Oral mucosa moist. Posterior pharynx without exudates. No sinus tenderness elicited. NECK: No cervical adenopathy. No supraclavicular adenopathy. No JVD appreciated. Thyroid is within normal limits. PULMONARY: Clear to auscultation. CARDIOVASCULAR: Regular rate without S3, without S4. PMI is not displaced. 2/6 systolic murmur along the left sternal border. ABDOMEN: Soft, nontender. Normal bowel sounds. SKIN: Unremarkable. EXTREMITIES: Unremarkable. NEUROLOGIC: The patient is intact. ASSESSMENT AND PLAN: The patient with chest pain, shortness of breath with exertion, abnormal stress Cardiolite. Echocardiogram shows diminished left ventricular ejection fraction around 45%. The patient is now to undergo coronary angiography. Further recommendations after the angiogram. Vernon Gordon MD SA/FAYE/NADEGE TID: [id number] RECEIPT: [id number]
--- NOTE | 2024-09-22 18:55 | DVHDS ---
DATE OF DISCHARGE: 09/22/2024 DISCHARGE DIAGNOSES: The patient underwent successful angioplasty, stent placement, and thrombectomy of the ostial RCA. The patient is now clinically stable and will be discharged home. Follow up with me in 1 week. Stable at the time of discharge. ACTIVITY: As instructed. DIET: A 2 grams sodium diet. Vernon Gordon MD SA/OSEI TID: [id number] RECEIPT: [id number]
== END 2024-09-22 13:42 | disposition home or self-care (01) ==
LOC: CATH 07:00
PROVIDERS: ATTEND Internal Medicine Cardiovascular Disease
DX: I25.10 Atherosclerotic heart disease of native coronary artery without angina pectoris (principal); R07.9 Chest pain, unspecified; I25.5 Ischemic cardiomyopathy; Z95.5 Presence of coronary angioplasty implant and graft; Z95.810 Presence of automatic (implantable) cardiac defibrillator; R06.02 Shortness of breath; R53.83 Other fatigue; R68.81 Early satiety; R94.39 Abnormal result of other cardiovascular function study
CPT/HCPCS: 0523T; 92972; 92973; 93458; C1725; C1760; C1761; C1769; C1874; C1887; C1894; C9600; J0583; J1644; J2250; J3010; J7030; Q9967; 36415; 80048; 85025; 85610; 85730; 99152; 99153

== ENCOUNTER → 2024-10-31 | Outpatient (CLI) | payer MEDICARE, OTHER | END | disposition home or self-care (01) | LOC: Rad HDHVI 08:02 | PROVIDERS: ATTEND Internal Medicine Cardiovascular Disease | DX: I08.1 Rheumatic disorders of both mitral and tricuspid valves (principal); I11.0 Hypertensive heart disease with heart failure; I50.23 Acute on chronic systolic (congestive) heart failure | CPT/HCPCS: 93306 ==